=== PATIENT | female | born 1990 | race Caucasian/White ===

== ENCOUNTER → 2017-12-14 08:35 | Outpatient (CLI) | payer BC, SELFPAY ==
[2017-12-22 08:22] LABS: HPV HC, High Risk Positive (Negative)
[2017-12-22 08:29] LABS: HPV Reflexed? YES, CHARGE PATIENT
== END ==
PROVIDERS: Visit Provider Obstetrics & Gynecology
DX: Z12.4 Encounter for screening for malignant neoplasm of cervix (principal)
CPT/HCPCS: 87624; 88175; G0145

== ENCOUNTER → 2018-06-29 13:49 | Outpatient (CLI) | payer BC, SELFPAY ==
[2017-03-01 14:27] VITALS: BMI 18.8
[2018-07-01 11:51] LABS: HPV Reflexed? NOT INDICATED
== END ==
PROVIDERS: Referring Provider Obstetrics & Gynecology; Visit Provider Obstetrics & Gynecology
DX: R87.610 Atypical squamous cells of undetermined significance on cytologic smear of cervix (ASC-US) (principal); R87.810 Cervical high risk human papillomavirus (HPV) DNA test positive
CPT/HCPCS: 88175; G0145

== ENCOUNTER → 2020-05-06 11:04 | Outpatient (CLI) | payer BC, SELFPAY ==
[2017-03-01 14:27] VITALS: BMI 18.8
[2020-05-08 21:03] LABS: HPV Reflexed? NOT INDICATED
== END ==
PROVIDERS: Visit Provider Student in an Organized Health Care Education/Training Program
DX: Z12.4 Encounter for screening for malignant neoplasm of cervix (principal)
CPT/HCPCS: 88175; G0145

== ENCOUNTER 2020-07-11 14:33 | Outpatient (RCR) | payer BC, SELFPAY ==
[2017-03-01 14:27] VITALS: BMI 18.8
== END 2020-09-16 23:59 ==
LOC: IMMUN 14:33
PROVIDERS: PCP Nurse Practitioner Family; Visit Provider Family Medicine
DX: Z23 Encounter for immunization (principal)
CPT/HCPCS: 0001A; 0002A; 91300

== ENCOUNTER → 2021-03-31 12:09 | Outpatient (CLI) | payer BC, SELFPAY ==
[2021-04-01 21:07] LABS: Chlamydia By Nucleic Acid AMP Negative (Negative)
[2021-04-01 22:35] LABS: Gonococcus By Nucleic Acid AMP Negative (Negative)
== END ==
PROVIDERS: PCP Nurse Practitioner Family; Visit Provider Student in an Organized Health Care Education/Training Program
DX: Z34.81 Encounter for supervision of other normal pregnancy, first trimester (principal); Z11.3 Encounter for screening for infections with a predominantly sexual mode of transmission
CPT/HCPCS: 87491; 87591

== ENCOUNTER 2021-04-14 15:10 | Outpatient (CLI) | payer BC, SELFPAY ==
[2021-04-14 15:35] LABS: Absolute Lymphocyte Count 1.22 X10^3/uL (0.83-4.51); Absolute Neutrophil Count 6.3 X10^3/uL (2.0-7.7); Basophil# 0.02 X10^3/uL; Basophil% 0.2 % (0-1); Eosinophil# 0.04 X10^3/uL; Eosinophils% 0.5 % (0-5); Hematocrit 32.8 % (37-47); Hemoglobin 11.3 g/dL (12.0-15.0); Lymphocyte # 1.22 X10^3/ul (0.83-4.51); Mean Corp Hgb Conc 34.5 g/dL (32-36); Mean Corpuscular Volume 90.1 fL (81-99); Mean Platelet Vol. 9.9 fl (6.2-12.0); Monocyte# 0.53 X10^3/uL; Monocyte% 6.5 % (0-10); NRBC Flagged by Analyzer 0 % (0-5); Neutrophil # 6.28 X10^3/uL (2.7-7.7); Neutrophil % 77.4 % (47-70); Platelet Count 295 K/mm3 (150-450); RBC Distribution Width CV 11.6 % (11.6-14.6); RBC Distribution Width SD 38.2 fl (35.1-43.9); Red Blood Count 3.64 M/mm3 (4.2-5.4); White Blood Count 8.1 K/mm3 (4.4-11.0)
[2021-04-15 09:21] LABS: HIV - WCH Non-Reactive (Nonreactive); Hepatitis B Surface Antigen Non-Reactive (Nonreactive); Hepatitis C Antibody Non-Reactive (Nonreactive); Rubella IgG Reactive (Nonreactive); Syphilis Antibodies Non-reactive
== END 2021-04-14 23:59 | disposition short-term general hospital (02) ==
LOC: WOBLAB 15:11
PROVIDERS: PCP Nurse Practitioner Family; Visit Provider Student in an Organized Health Care Education/Training Program
DX: Z34.81 Encounter for supervision of other normal pregnancy, first trimester (principal)
CPT/HCPCS: 36415; 85025; 86703; 86762; 86780; 86803; 87086; 87340

== ENCOUNTER → 2021-08-03 | Outpatient (CLI) | payer BC, SELFPAY ==
[2021-08-03 09:33] LABS: Hematocrit 29.7 % (37-47); Hemoglobin 10.4 g/dL (12.0-15.0); Mean Corpuscular Hgb 32.3 pg (27.0-32.0); Mean Corpuscular Volume 92.2 fL (81-99); Mean Platelet Vol. 10.2 fl (6.2-12.0); Platelet Count 193 K/mm3 (150-450); RBC Distribution Width CV 12.4 % (11.6-14.6); RBC Distribution Width SD 41.7 fl (35.1-43.9); Red Blood Count 3.22 M/mm3 (4.2-5.4); White Blood Count 7.8 K/mm3 (4.4-11.0)
[2021-08-03 09:38] LABS: Glucose Challenge Gest 1H 50g 97 mg/dL (70-140)
== END | disposition home or self-care (01) ==
LOC: WOBLAB 08:55
PROVIDERS: PCP Nurse Practitioner Family; Visit Provider Student in an Organized Health Care Education/Training Program
DX: Z34.82 Encounter for supervision of other normal pregnancy, second trimester (principal)
CPT/HCPCS: 36415; 82950; 85027

== ENCOUNTER → 2021-10-22 | Outpatient (CLI) | payer BC, SELFPAY | END | disposition home or self-care (01) | LOC: LABSPEC 14:20 | PROVIDERS: PCP Nurse Practitioner Family; Visit Provider Student in an Organized Health Care Education/Training Program | DX: Z36.85 Encounter for antenatal screening for Streptococcus B (principal) | CPT/HCPCS: 87081 ==

== ENCOUNTER 2021-11-09 10:55 | Outpatient (CLI) | payer BC, SELFPAY ==
[2021-11-09 11:10] VITALS: BP 104/67; PULSE 120; TEMP 36.6; TEMP 37.4; O2SAT 98
[2021-11-09 11:41] VITALS: BMI 23.6
--- NOTE | 2021-11-09 12:48 | PCM.PN.OB ---
Subjective Subjective Patient had some cramping. Objective Data Objective Data Vital Signs: Vital Signs Temp Pulse BP Pulse Ox 97.9 F 120 H 104/67 98 11/09/21 11:10 11/09/21 11:10 11/09/21 11:10 11/09/21 11:10 Weight: 62.596 kg Body Mass Index (BMI) 23.6 Physical Exam Narrative: 2 cm per RN NST FHR Rate Baby A Baseline: 145 Variability:: Moderate Accelerations:: 15 x 15 Decelerations:: None NST Reactive:: Yes Assessment & Plan (1) 39 weeks gestation of : PLAN: 31-year-old G1 at 39/1 weeks presenting for NST. NST reactive, cervix unchanged from exam last week. Discharge home with follow-up 1 week in office. Labor precautions reviewed per RN.
== END 2021-11-09 11:48 | disposition home or self-care (01) ==
LOC: WPOUT 10:59 → WP 11:00
PROVIDERS: PCP Nurse Practitioner Family; Referring Provider Student in an Organized Health Care Education/Training Program; Visit Provider Student in an Organized Health Care Education/Training Program
DX: O99.891 Other specified diseases and conditions complicating pregnancy (principal); R25.2 Cramp and spasm; Z3A.39 39 weeks gestation of pregnancy
CPT/HCPCS: 59025; 59050; 99218; G0378

== ENCOUNTER 2021-11-18 18:45 | Outpatient (CLI) | payer BC, SELFPAY ==
[2021-11-18 19:06] VITALS: BMI 23.5
[2021-11-18 19:13] VITALS: BP 109/80; PULSE 97
[2021-11-18 19:26] VITALS: TEMP 37.4; O2SAT 99
[2021-11-18 20:06] LABS: ROM Internal Control Test YES-OK TO RESULT pt. (Internal QC); ROM Patient Test Negative (Negative)
--- NOTE | 2021-11-18 20:06 | OB.TRI.NOTE ---
HPI - General General Date of Admission: 11/18/21 HPI Narrative TAM DE LA O, is a 31 F who presents with leakage of fluid PFSH PFSH Home Medications doxylamine succinate 25 mg tablet (Unisom (doxylamine)) 25 mg PO PRN PRN Nausea 11/09/21 [History Last Taken 11/17/21 22:00] famotidine 40 mg tablet (Pepcid) 20 mg PO DAILY Check with primary doctor 11/09/21 [History Last Taken 11/18/21 10:00] vitamins no.144-folic acid 400 mcg chewable tablet () 1 tab PO DAILY Check with primary doctor 11/09/21 [History Last Taken 11/18/21 10:00] vitamin B6-vitamin E-magnesium tablet tab PO 11/18/21 [History Last Taken 11/18/21 10:00] Allergy/AdvReac Type Severity Reaction Status Date / Time tramadol Allergy Hives Verified 11/18/21 19:17 Social History Smoking Status: Never smoker NST FHR Rate Baby A Baseline: 130 Variability:: Moderate Accelerations:: 15 x 15 Decelerations:: None NST Reactive:: Yes Uterine Activity:: Few contractions Assessment & Plan (1) : PLAN: Patient arrives with leakage of fluid. ROM negative. Okay to discharge home
== END 2021-11-18 20:25 | disposition home or self-care (01) ==
LOC: WPOUT 18:50 → WP 18:51
PROVIDERS: PCP Nurse Practitioner Family; Visit Provider Obstetrics & Gynecology
DX: R32 Unspecified urinary incontinence (principal)
CPT/HCPCS: 59025; 59050; 84112; 99218; G0378

== ENCOUNTER 2021-11-19 07:05 | Outpatient (CLI) | payer BC, SELFPAY ==
[2021-11-19 07:54] VITALS: BMI 23.8
[2021-11-19 07:57] VITALS: TEMP 36.8
[2021-11-19 07:58] VITALS: BP 102/61; PULSE 105
--- NOTE | 2021-11-19 08:11 | PCM.HP.BLA ---
History and Physical Date of Admission: 11/19/21 Chief complaint: Induction of labor at term History present illness: 31-year-old at 40 weeks and 4 days arrives for induction of labor at term. Denies headache, visual changes, chest pain, shortness of breath, nausea vomit, right upper quadrant pain. Patient states good movement. Obstetric history: G1: Current Past medical history: None Medications: vitamin Past surgical history: Hand, tonsil and adenoids Allergies: Tramadol Family history: Denies history DVT or PE Social history: Denies smoking, alcohol use, drug use Review of systems: Besides above pertinent positives a full review of systems was performed and found to be negative Physical exam: Vitals: Blood pressure 102/61 General: Normal-appearing no acute distress none HEENT: Normocephalic/atraumatic no cervical of adenopathy Cardiac/respiratory: No use accessory muscles, nonlabored breathing Abdomen: Soft, nontender, gravid Extremities: No peripheral edema normal peripheral pulses Psych: Normal affect normal demeanor nonpressured speech Labs: Pending Assessment plan: 31-year-old G1, P0 at 40 weeks and 4 days for induction of labor at term Admit labor and delivery CEFM GBS negative Routine orders Anesthesia to see
== END 2021-11-19 11:55 | disposition home or self-care (01) ==
LOC: WP 12:32 → WPOUT 12:53 → WP 12:54
PROVIDERS: PCP Nurse Practitioner Family; Visit Provider Student in an Organized Health Care Education/Training Program
DX: O48.0 Post-term pregnancy (principal); Z3A.40 40 weeks gestation of pregnancy
CPT/HCPCS: 59025; 59050; 99218; G0378

== ENCOUNTER 2021-11-20 07:08 | Inpatient (IN) | payer BC, SELFPAY ==
[2021-11-20] VITALS (46 sets, daily range): BP systolic 95–120; BP diastolic 57–72; PULSE 71–126; TEMP 36.2–37.4; O2SAT 97–100; BMI 23.8
--- NOTE | 2021-11-20 07:34 | PCM.HP.BLA ---
History and Physical Date of Admission: 11/20/21 Chief complaint: Induction of labor at term History present illness: 31-year-old at 40 weeks and 5 days arrives for induction of labor at term.? Denies headache, visual changes, chest pain, shortness of breath, nausea vomit, right upper quadrant pain.? Patient states good movement. Obstetric history: G1: Current Past medical history: None Medications: vitamin Past surgical history: Hand, tonsil and adenoids Allergies: Tramadol Family history: Denies history DVT or PE Social history: Denies smoking, alcohol use, drug use Review of systems: Besides above pertinent positives a full review of systems was performed and found to be negative Physical exam: Vitals: Blood pressure 109/68 SpO2 99% on RA General: Normal-appearing no acute distress none HEENT: Normocephalic/atraumatic no cervical of adenopathy Cardiac/respiratory: No use accessory muscles, nonlabored breathing Abdomen: Soft, nontender, gravid Extremities: No peripheral edema normal peripheral pulses Psych: Normal affect normal demeanor nonpressured speech Labs: Pending Assessment plan: 31-year-old G1, P0 at 40 weeks and 5 days for induction of labor at term Admit labor and delivery CEFM GBS negative Routine orders Anesthesia to see
[2021-11-20] MEDS: Lactated Ringers 1,000 ML 50 ML IV (07:45)
[2021-11-20] MEDS: Oxytocin 30 units/NS 500 ml 30 UNITS/500 ML IV.SOLN IV (07:45)
[2021-11-20 07:59] LABS: Absolute Lymphocyte Count 2.56 X10^3/uL (0.83-4.51); Absolute Neutrophil Count 9.6 X10^3/uL (2.0-7.7); Basophil# 0.07 X10^3/uL; Basophil% 0.5 % (0-1); Eosinophil# 0.16 X10^3/uL; Eosinophils% 1.2 % (0-5); Hematocrit 32.6 % (37-47); Hemoglobin 10.5 g/dL (12.0-15.0); Lymphocyte # 2.56 X10^3/ul (0.83-4.51); Lymphocyte % 19.2 % (19-41); Mean Corp Hgb Conc 32.2 g/dL (32-36); Mean Corpuscular Hgb 29.6 pg (27.0-32.0); Mean Corpuscular Volume 91.8 fL (81-99); Monocyte# 0.92 X10^3/uL; Monocyte% 6.9 % (0-10); NRBC Flagged by Analyzer 0 % (0-5); Neutrophil # 9.55 X10^3/uL (2.7-7.7); Neutrophil % 71.6 % (47-70); Platelet Count 297 K/mm3 (150-450); RBC Distribution Width CV 12.5 % (11.6-14.6); RBC Distribution Width SD 41.3 fl (35.1-43.9); Red Blood Count 3.55 M/mm3 (4.2-5.4); White Blood Count 13.3 K/mm3 (4.4-11.0)
[2021-11-20] MEDS: LACTATED RINGERS 500 ML 999 ML IV ×2 (14:57→19:30)
--- NOTE | 2021-11-20 15:16 | PCM.PN.OB ---
Subjective Subjective Patient standing at bedside. Breathing through contractions. Objective Data Objective Data Vital Signs: Vital Signs Temp Pulse BP Pulse Ox 98.7 F 75 101/69 100 11/20/21 13:51 11/20/21 14:56 11/20/21 14:56 11/20/21 13:51 Weight: 64.92 kg Body Mass Index (BMI) 23.8 Intake & Output: Intake and Output for Last 24 Hours 11/18/21 11/19/21 11/20/21 23:59 23:59 23:59 Intake Total 506.48 / 506.48 Balance 506.48 / 506.48 Lab / Micro Data Attestation: I reviewed the patient's lab results. Result Diagrams: 11/20/21 07:45 Labs: Laboratory Results - last 24 hr 11/20/21 07:45: WBC 13.3 H, RBC 3.55 L, Hgb 10.5 L, Hct 32.6 L, MCV 91.8, MCH 29.6, MCHC 32.2, RDW Std Deviation 41.3, RDW Coeff of Home 12.5, Plt Count 297, MPV 10.0, Immature Gran % (Auto) 0.600, Neut % (Auto) 71.6 H, Lymph % (Auto) 19.2, Alfalfa % (Auto) 6.9, Eos % (Auto) 1.2, Baso % (Auto) 0.5, Absolute Neuts (auto) 9.6 H, Absolute Lymphs (auto) 2.56, Nucleated RBC % 0 11/20/21 07:45: Blood Type A POSITIVE, Antibody Screen NEGATIVE Micro: Microbiology 11/20/21 08:53 Nasal Secretion SARS-CoV-2 Antigen (Rapid) - Final Physical Exam Const alert and oriented x3 Resp normal respiratory effort GI Inspection: gravid Narrative: 3-4/80/0, AROM clear fluid Extremity no pedal edema NST FHR Rate Baby A Baseline: 135 Variability:: Moderate Accelerations:: 15 x 15 Decelerations:: None FHR Category:: Category I Uterine Activity:: q3 Assessment & Plan (1) Elective induction of labor planned: PLAN: 40/5 weeks induction of labor at term. AROM clear fluid. Category 1. Continue titrating Pitocin as tolerated.
[2021-11-20] MEDS: fentaNYL-bupivacaine (epidural) 100 ML BAG EPIDURAL ×3 (16:14→21:23)
[2021-11-20] MEDS: Lactated Ringers 1,000 ML 200 ML IV (18:20)
[2021-11-20] MEDS: Ondansetron 4 MG/2 ML Vial IV (21:31)
[2021-11-20] MEDS: Oxytocin 30 units/NS 500 ml 30 UNITS/500 ML IV.SOLN 334 UNITS IV (23:16)
--- NOTE | 2021-11-20 23:54 | EX.PCM.OBRPT ---
Vaginal Delivery Operative Information Date of Procedure: 11/20/21 Pre-Operative Diagnosis: Faust intrauterine at term Post-Operative Diagnosis: Faust intrauterine at term, third-degree perineal laceration Surgery / Procedure Performed: Spontaneous Vaginal Delivery Type of Anesthesia: Epidural Estimated Blood Loss: 300cc Findings Description of Procedure: Spontaneous vaginal delivery of viable infant male. Nuchal cord x1, loose, reduced. Baby to mom. Cord clamped and cut. Spontaneous delivery of placenta. Third-degree (3a) perineal laceration repaired in the usual fashion. Rectal exam completed prior to repair and after completion, noting intact rectal mucosa and anal sphincter on both examinations. Right labial laceration, repaired with interrupted stitches. Hemostatic. Cefoxitin x1 dose (2g IV) for third degree laceration. A Gender: Male (1 minute): 8 (5 minute): 9
[2021-11-21] VITALS (44 sets, daily range): BP systolic 93–110; BP diastolic 51–66; PULSE 73–150; RESP 14–18; TEMP 36.2–36.8; O2SAT 96–99
[2021-11-21] MEDS: Ibuprofen 600 MG Tablet PO ×4 (02:55→20:28)
--- NOTE | 2021-11-21 08:52 | PCM.PN.OB ---
Subjective Subjective No overnight complaints. Pain well controlled Objective Data Objective Data Vital Signs: Vital Signs Temp Pulse Resp BP Pulse Ox 98.2 F 85 16 93/51 L 98 11/21/21 04:20 11/21/21 04:20 11/21/21 04:20 11/21/21 04:20 11/21/21 02:18 Weight: 143 lb 2 oz Body Mass Index (BMI) 23.8 Intake & Output: Intake and Output for Last 24 Hours 11/19/21 11/20/21 11/21/21 23:59 23:59 23:59 Intake Total 3088.31 / 3088.31 600 / 600 Output Total 400 / 400 Balance 2688.31 / 2688.31 600 / 600 Lab / Micro Data Result Diagrams: 11/20/21 07:45 Labs: Laboratory Results - last 24 hr 11/20/21 07:45: Blood Type A POSITIVE, Antibody Screen NEGATIVE Micro: Microbiology 11/20/21 08:53 Nasal Secretion SARS-CoV-2 Antigen (Rapid) - Final Physical Exam Const alert, oriented x3, no apparent distress, average body habitus, healthy appearing and well nourished HEENT normocephalic and moist oral mucous membranes Eyes PERRL Resp normal respiratory effort, no retractions and no use of accessory muscles GI GI Narrative: Soft, nontender, uterus firm and below umbilicus Neuro moves all extremities and no focal motor deficits Psych mental status grossly normal, affect normal, speech normal and activity/motor behavior normal Assessment & Plan (1) Vaginal delivery: PLAN: day 1. Breast-feeding. Pain well controlled. Likely home tomorrow
[2021-11-21] MEDS: Dibucaine 30 GM Tube 1 APPLIC TOPICAL (10:53)
[2021-11-21] MEDS: Senna/Docusate Sodium 1 Tablet PO (15:58)
[2021-11-21] MEDS: Acetaminophen 500 MG Tablet 1000 MG PO ×2 (15:59→22:40)
--- NOTE | 2021-11-21 19:00 | CASEMGMT ---
Social Work Note Reason for Referral: Mental Health - History of Anxiety and Depression Date of Referral: 11/21/2021 Date of Assessment: 11/21/2021 SW spoke with RN. RN states no concerns and is doing great. SW in to speak with pt. Pt sleeping but did wake up when this worker entered the room. MADISYN Jay present in room and MOB gave permission for this worker to speak to her in front of her guest. MOB: Odalys King G/P: 1/0 PNC: [facility] Control: Condoms Baby: Jarett Wiseman : 11/20/2020 Apgars: 8/9 Weight: 4135 G Floating Labor Gang Supervisor: Dr. Mg. MOB states she tried to call today to get baby an appointment but states when she called the office, they were not taking phone calls at this time. MOB states she plans to call again to get appointment scheduled. MOB states she plans to breast feed. MOB states that breast feeding is going ok. MOB's other children: MOB reports no other children, states this baby is her first. Housing: MOB reports no concerns, states is spoiled. Transportation: MOB states she has access to transportation. Supplies: MOB reports to have all needed supplies. Supports/Childcare Helpers: MOB states Jay will be good support. MOB also states that her MIL lives two minutes away and is able to help. MOB states that her mother will be staying a week. Education Level: MOB reports to have graduated from high school. MOB reports to have gone to college and to have a Bachelor's degree. MOB states her degree is in legal studies/pre law. Employment: MOB reports to work at [employer] in the [place]. MOB states to have 12 weeks paid off and can do a total of 18 weeks off for new baby. Agency Involvement: MOB reports none Maternal Mental Health Hx: MOB states that she does have history of Anxiety and Depression. MOB states that she is currently not on medication. MOB reports to did take Generac Lexapro but states she has not taken this medication in years. MOB reports that her Anxiety and Depression are well managed. MOB reports no current suicidal/homicidal thoughts or plans. MOB states she is agreeable to seeing a counselor/therapist if PPD happens. PHQ-2 score = 0 AOD History: MOB reports no history of AOD and no AOD use during . FOB: Jay Malik - Time Together: 10 years totaled and for five Involved in : Yes Employment: [employer]. FOB reports to be taking one week off from work. Other Children: FOB reports first child. FOB Mental Health Hx: FOB reports no Mental Health, Substance use history. Both FOB and MOB reports no Domestic Violence concerns. SW spoke with pt and provided education on Shaken Baby, PPD, and Safe Sleeping. MOB reports to be aware of PPD and states that she already has a counselor, Dr. Castillo in mind, should she develop PPD and need help. SW provided MOB with resource packet. SW unable to see MOB with baby as MOB was sleeping when this worker entered the room and FOB was holding baby. Both MOB and FOB appeared appropriate and RN stated no concerns. Plan: Home Kina Barry UNIFORM PATROL POLICE OFFICER, PHLEBOTOMY TECHNOLOGIST
[2021-11-22 02:11] VITALS: BP 92/53; PULSE 75
[2021-11-22 02:12] VITALS: BP 92/53; PULSE 75; RESP 18; TEMP 36.1
[2021-11-22] MEDS: Ibuprofen 600 MG Tablet PO (02:19)
[2021-11-22 08:37] VITALS: BP 102/58; PULSE 82; RESP 16; TEMP 36.4
--- NOTE | 2021-11-22 09:44 | PN.OBGYN_ITS ---
Subjective Subjective No overnight complaints. Pain well controlled. Objective Data Objective Data Vital Signs: Vital Signs Temp Pulse Resp BP Pulse Ox O2 Del Method 97.5 F L 82 16 102/58 L 98 Room Air 11/22/21 08:37 11/22/21 08:37 11/22/21 08:37 11/22/21 08:37 11/21/21 02:18 11/22/21 08:37 Oxygen Delivery Method Room Air Weight: 143 lb 2 oz Body Mass Index (BMI) 23.8 Intake & Output: Intake and Output for Last 24 Hours 11/20/21 11/21/21 11/22/21 23:59 23:59 23:59 Intake Total 3088.31 / 3088.31 600 / 600 Output Total 400 / 400 Balance 2688.31 / 2688.31 600 / 600 Lab / Micro Data Result Diagrams: 11/20/21 07:45 Micro: Microbiology 11/20/21 08:53 Nasal Secretion SARS-CoV-2 Antigen (Rapid) - Final Physical Exam Const alert, oriented x3, no apparent distress, average body habitus, healthy ap pearing and well nourished HEENT normocephalic and moist oral mucous membranes Eyes PERRL Neck full ROM Resp normal respiratory effort, no retractions and no use of accessory muscles GI GI Narrative: Soft, nontender, uterus firm below umbilicus Extremity normal to inspection, full ROM and no clubbing, cyanosis or edema Neuro moves all extremities and no focal motor deficits Psych mental status grossly normal, affect normal, speech normal and activity/motor behavior normal Assessment & Plan (1) Vaginal delivery: PLAN: day 2. Breast-feeding. Okay to discharge home today
--- NOTE | 2021-11-22 09:46 | PCM.DC.BLA ---
Discharge Summary Date of Admission: 11/20/21 Date of Discharge: 11/22/21 Summary: Patient arrived on 11/20/2021 for induction of labor at term. Subsequently delivered vaginally on 11/20/2021. Routine recovery discharged home on 11/23/2019 Meaningful Use Info Meaningful Use Diagnoses (Choose all that apply): None applicable Discharge Plan Admission Admit Date/Time: 11/20/21 07:08 Primary Reason for Your Visit: Induction of labor at term Attending Provider: Dominique Childress Primary Care Provider: Leatha Singer NP Instructions Patient Instructions: After a Vaginal Additional Instructions / Restrictions: Regular diet. Okay to shower. Weightbearing as tolerated. No intercourse for 4 to 6 weeks. Call if fevers, chills, chest pain, shortness of breath. Follow-up 4 to 6 weeks Discharge Orders/Prescriptions Prescriptions: No Action 400 mcg Tablet,Chewable 1 tab PO DAILY famotidine [Pepcid] 40 mg Tablet 20 mg PO DAILY Unisom (doxylamine) 25 mg Tablet 25 mg PO PRN PRN (Reason: Nausea) vitamin B6-vitamin E-magnesium Tablet 1 tab PO DAILY Label Comments: pt unsure of dosage of vitamin B6 Referrals / Follow Up: Leatha Singer NP, [employer] SALES REPRESENTATIVE-C [Primary Care Provider] - Disposition Disposition (needs filled in before D/C Order can be placed): Home, Self Care
[2021-11-22] MEDS: Senna/Docusate Sodium 1 Tablet PO (10:15)
== END 2021-11-22 12:00 | disposition home or self-care (01) | DRG 768 ==
PROVIDERS: Admitting Provider Student in an Organized Health Care Education/Training Program; PCP Nurse Practitioner Family; Visit Provider Student in an Organized Health Care Education/Training Program
DX: O48.0 Post-term pregnancy (principal); Z37.0 Single live birth; O70.20 Third degree perineal laceration during delivery, unspecified; O70.0 First degree perineal laceration during delivery; O69.81X0 Labor and delivery complicated by cord around neck, without compression, not applicable or unspecified; Z3A.40 40 weeks gestation of pregnancy
CPT/HCPCS: 59025; 59050; 85025; 86850; 86900; 86901; 87426; 99218; J7120; G0378; J2405

== ENCOUNTER 2022-08-16 10:22 | Day surgery (SDC) | payer BC, SELFPAY ==
--- NOTE | 2022-08-16 10:22 | HP.PCM.OB_ITS ---
History and Physical Date of Admission: 08/16/22 HPI: 32-year-old female with dyspareunia and excess vaginal tissue plan for exam under anesthesia and excision of vaginal tissue.? Denies headache or vision changes, chest pain or shortness of breath, nausea or vomiting, diarrhea constipation, fevers or chills. SALES ANALYTICS MANAGER history: G1: 40w , third degree tear Medical history: 1.?Denies Surgical history: 1.? Hand surgery 2.? Tonsillectomy and adenoidectomy Allergies: Tramadol causes hives Family history: Denies history of blood clots or bleeding disorders Social history: Denies alcohol, tobacco, or drug use. Medications: None Review of system: Negative otherwise stated above Physical exam: Vitals pending General: No acute distress HEENT: Normal cephalic/atraumatic, PERRLA Cardiorespiratory: No increased effort Abdomen: Soft, nontender Extremities: No edema Neurologic: Cranial nerves II through XII grossly intact Musculoskeletal: Moves all extremities equally Assessment/plan: 32-year-old female with dyspareunia and excess vaginal tissue plan for exam under anesthesia and excision of vaginal tissue. All risk, benefits, alternatives were discussed with patient.? Risk include but not limited to: Risk of bleeding to the point transfusion, infection, injury to surrounding tissue including bowel/bladder, VTE, ICU admission.? Patient aware and consented.?
[2022-08-16 10:54] LABS: Internal QC Validated? YES +Cl - CLEAR BKGD; Pregnancy, Urine Negative Negative
[2022-08-16 10:55] LABS: Hematocrit 35.9 % (37-47); Hemoglobin 11.9 g/dL (12.0-15.0); Mean Corp Hgb Conc 33.1 g/dL (32-36); Mean Corpuscular Hgb 28.8 pg (27.0-32.0); Mean Corpuscular Volume 86.9 fL (81-99); Mean Platelet Vol. 9.4 fl (6.2-12.0); Platelet Count 271 K/mm3 (150-450); RBC Distribution Width CV 13.5 % (11.6-14.6); RBC Distribution Width SD 42.8 fl (35.1-43.9); Red Blood Count 4.13 M/mm3 (4.2-5.4); White Blood Count 4.6 K/mm3 (4.4-11.0)
[2022-08-16] MEDS: Lactated Ringers 1,000 ML 15 ML IV (10:55)
[2022-08-16 10:56] VITALS: BP 115/50; PULSE 86; RESP 18; TEMP 37.3; O2SAT 100; BMI 18.4
--- NOTE | 2022-08-16 11:55 | PCM.OPRPT ---
Report of Operation Date of Procedure: 08/16/22 Pre-Operative Diagnosis: Dyspareunia, excess vaginal tissue Post-Operative Diagnosis: Dyspareunia, excess vaginal tissue Surgery/Procedure Performed:: Exam under anesthesia, excision of excess vaginal tissue Description of Surgical Findings:: Normal-appearing external genitalia. Excess vaginal tissue at the vaginal introitus midline extending towards the left labia majora. Likely hymenal tissue healing in this location after third-degree laceration repair. Surgeon: Dominique Childress machine pecan gatherer: None Type of Anesthesia: MAC Specimen's removed: Vaginal skin Estimated Blood Loss (mL): 5 cc Fluids Replaced: 400cc Description of Procedure: Indication/risk/benefits: 32-year-old female with dyspareunia and excess vaginal tissue plan for exam under anesthesia and excision of vaginal tissue. All risk, benefits, alternatives were discussed with patient.? Risk include but not limited to: Risk of bleeding to the point transfusion, infection, injury to surrounding tissue including bowel/bladder, VTE, ICU admission.? Patient aware and consented.? Procedure: Patient taken to the operating room and MAC anesthesia induced. Patient placed in the dorsal lithotomy position prepped and draped in usual sterile fashion. Excess vaginal tissue grasped with 2 Allis clamps and removed with scalpel. Reapproximated using interrupted [id number] suture. Hemostatic. At the end of the procedure all needle, lap, sponge counts were correct. Urine output: none measured Complications None Admit VTE Documentation VTE Mechan Device Prophylaxis: SCD's
[2022-08-16] MEDS: Cefazolin 2 GM in 0.9% Normal Saline 100 ML IV (11:56)
--- NOTE | 2022-08-16 11:56 | PCM.DC ---
Discharge Instructions Diet Discharge Diet: No restrictions Activity Discharge Activity: Return to Normal Activity and May Shower May resume sexual activity in: 4 weeks Weight Bearing Status: Weight bearing as tolerated Lifting Restrictions: None Dressing / Incision Call your doctor if you observe: Fever of 101 or Higher, Change in Color, Inability to urinate, Using more than 1 pad per hour, Shortness of breath, Dizziness, Swelling in the ankles, Chest pain and Calf discomfort Cleanse incision/area with: Keep Dressing Clean & Dry Follow Up Care Please Follow Up With: Dominique Childress DO When: 1-2 week postoperative visit Test Results: Test results from this visit will be discussed in further detail at your follow-up appointment, if applicable. Discharge Plan Admission Primary Reason for Your Visit: Excision of excess tissue Attending Provider: Dominique Childress Primary Care Provider: Leatha Singer NP Discharge Orders/Prescriptions Prescriptions: No Action ibuprofen 200 mg Tablet 600 mg PO Q6H PRN (Reason: Migraine Headache) Referrals / Follow Up: Leatha Singer NP, COMPUTER AIDED DESIGN DESIGNER-C [Primary Care Provider] - Disposition Disposition (needs filled in before D/C Order can be placed): Home, Self Care
[2022-08-16 12:20] VITALS: BP 115/50; BP 86/50; PULSE 57; RESP 18; TEMP 36.8; O2SAT 99
[2022-08-16 12:25] VITALS: BP 115/50; BP 89/56; PULSE 63; RESP 18; O2SAT 100
[2022-08-16 12:30] VITALS: BP 115/50; BP 86/50; PULSE 56; RESP 18; O2SAT 100
[2022-08-16 12:35] VITALS: BP 115/50; BP 87/53; PULSE 63; RESP 18; TEMP 36.9; O2SAT 100
[2022-08-16 13:58] VITALS: BP 113/68; BP 115/50; PULSE 78; RESP 16; O2SAT 100
== END 2022-08-16 14:02 | disposition home or self-care (01) ==
LOC: SDC 10:23 → AC 10:24
PROVIDERS: Anesthesiology; PCP Nurse Practitioner Family; Referring Provider Student in an Organized Health Care Education/Training Program; Visit Provider Student in an Organized Health Care Education/Training Program
PROC: (CPT 57410; principal; 2022-08-16 11:50)
DX: N94.10 Unspecified dyspareunia (principal)
CPT/HCPCS: 57135; 00940; 81025; 85027; 86850; 86900; 86901; J7120; J2405

== ENCOUNTER → 2023-07-18 | Outpatient (CLI) | payer BC, SELFPAY ==
[2023-07-20 04:07] LABS: Chlamydia By Nucleic Acid AMP Negative (Negative); Gonococcus By Nucleic Acid AMP Negative (Negative)
[2023-07-20 15:08] LABS: HPV APTIMA, High Risk Negative (Negative)
== END | disposition home or self-care (01) ==
LOC: LABSPEC 13:04
PROVIDERS: PCP Nurse Practitioner Family; Referring Provider Obstetrics & Gynecology; Visit Provider Obstetrics & Gynecology
DX: O09.90 Supervision of high risk pregnancy, unspecified, unspecified trimester (principal); Z3A.00 Weeks of gestation of pregnancy not specified
CPT/HCPCS: 87086; 87491; 87591; 87624; 88175; G0145

== ENCOUNTER → 2023-08-05 | Outpatient (CLI) | payer BC, SELFPAY ==
[2023-08-05 14:03] LABS: Absolute Lymphocyte Count 1.48 X10^3/uL (0.83-4.51); Absolute Neutrophil Count 6.7 X10^3/uL (2.0-7.7); Basophil# 0.04 X10^3/uL; Basophil% 0.5 % (0-1); Eosinophil# 0.05 X10^3/uL; Eosinophils% 0.6 % (0-5); Hematocrit 35.7 % (37-47); Hemoglobin 12.2 g/dL (12.0-15.0); Lymphocyte # 1.48 X10^3/ul (0.83-4.51); Mean Corp Hgb Conc 34.2 g/dL (32-36); Mean Corpuscular Hgb 29.9 pg (27.0-32.0); Mean Corpuscular Volume 87.5 fL (81-99); Mean Platelet Vol. 10.3 fl (6.2-12.0); Monocyte# 0.43 X10^3/uL; Monocyte% 4.9 % (0-10); NRBC Flagged by Analyzer 0 % (0-5); Neutrophil # 6.68 X10^3/uL (2.7-7.7); Neutrophil % 76.7 % (47-70); Platelet Count 329 K/mm3 (150-450); RBC Distribution Width CV 12.4 % (11.6-14.6); RBC Distribution Width SD 39.5 fl (35.1-43.9); Red Blood Count 4.08 M/mm3 (4.2-5.4); White Blood Count 8.7 K/mm3 (4.4-11.0)
[2023-08-05 14:32] LABS: HIV - WCH Non-Reactive (Nonreactive); Hepatitis B Surface Antigen Non-Reactive (Nonreactive); Hepatitis C Antibody Non-Reactive (Nonreactive); Rubella IgG Reactive (Nonreactive); Syphilis Antibodies Non-reactive
== END | disposition home or self-care (01) ==
LOC: LAB 13:07
PROVIDERS: PCP Nurse Practitioner Family; Referring Provider Obstetrics & Gynecology; Visit Provider Obstetrics & Gynecology
DX: Z34.90 Encounter for supervision of normal pregnancy, unspecified, unspecified trimester (principal); Z3A.00 Weeks of gestation of pregnancy not specified
CPT/HCPCS: 36415; 85025; 86703; 86762; 86780; 86803; 86850; 86900; 86901; 87340

== ENCOUNTER 2023-08-16 05:59 | Day surgery (SDC) | payer BC, SELFPAY ==
[2023-08-16] VITALS (9 sets, daily range): BP systolic 71–107; BP diastolic 49–73; PULSE 57–84; RESP 16; TEMP 36.8–37.3; O2SAT 97–100; BMI 20.2
--- NOTE | 2023-08-16 | POC_PTH ---
PATIENT: ATM DE LA O [place] [facility] [id number] AGE/SX: 33/F ROOM: RE08/16/[address]: Dr. Gia Mckeon DO : 1990 BED: DIS: 08/16/2023 SPEC #: [id number] RECD: 08/16/23 10:52 STATUS: CHAD REFátima #: [id number] ROSA M: 08/16/23 00:[address]: Gia Mckeon DEPT: SURGICAL PATHOLOGY RECD BY: Ricky Morrison ENTERED: 08/16/23 10:52 SP TYPE: PROD CONC OTHR DR: Leatha Singer, AAKASH-Susanna Tissues: Product of conception, NOS Procedures: Surgery Specimen Level IV HEADER OPERATION: D&C, suction PRE-OP DIAGNOSIS: Missed TISSUE SUBMITTED: Products of conception MICROSCOPIC DIAGNOSIS Products of conception, dilation and curettage: Immature placental tissue, decidua and gestational endometrium (products of conception), clinically missed . JESS: 08/17/23 MICROSCOPIC DESCRIPTION Slides are reviewed. GROSS DESCRIPTION Received in fixative is one container labeled with the patient's name and designated Products of conception. The specimen consists of multiple fragments of pink soft tissue measuring in aggregate 8.0 x 7.0 x 2.0cm. tissue is not identified. Nut Packer tissue is submitted in two cassettes. JESS/ 08/16/23 TC:5 CPT:12244
[2023-08-16] MEDS: Lactated Ringers 1,000 ML 15 ML IV (06:22)
[2023-08-16] MEDS: Doxycycline 100 MG CAPSULE PO (06:26)
[2023-08-16 06:37] LABS: Absolute Neutrophil Count 5.2 X10^3/uL (2.0-7.7); Basophil# 0.04 X10^3/uL; Basophil% 0.5 % (0-1); Eosinophil# 0.13 X10^3/uL; Eosinophils% 1.7 % (0-5); Hematocrit 34.7 % (37-47); Hemoglobin 11.9 g/dL (12.0-15.0); Lymphocyte % 22.5 % (19-41); Mean Corp Hgb Conc 34.3 g/dL (32-36); Mean Corpuscular Hgb 30.3 pg (27.0-32.0); Mean Corpuscular Volume 88.3 fL (81-99); Mean Platelet Vol. 10.1 fl (6.2-12.0); Monocyte# 0.45 X10^3/uL; NRBC Flagged by Analyzer 0 % (0-5); Neutrophil # 5.21 X10^3/uL (2.7-7.7); Neutrophil % 68.9 % (47-70); Platelet Count 256 K/mm3 (150-450); RBC Distribution Width CV 12.5 % (11.6-14.6); RBC Distribution Width SD 40.2 fl (35.1-43.9); Red Blood Count 3.93 M/mm3 (4.2-5.4); White Blood Count 7.6 K/mm3 (4.4-11.0)
--- NOTE | 2023-08-16 07:30 | HP.PCM.OB_ITS ---
HPI - General HPI Narrative TAM DE LA O, is a 33 y/o @ 11 weeks from her LMP who presents to [facility] for a suction D&C for a missed , measuring 8 weeks on ultrasound without heart tones yesterday morning. 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 She has elected to proceed with a suction dilation and curettage procedure. [facility] Medical History (Updated 08/16/23 @ 07:[address] Gia Mckeon, DO) Acute pyelonephritis Anxiety Blackout Chemical Hx of abnormal cervical Pap smear Leg cramps Low iron Migraine headache Non-smoker Wears contact lenses Wears glasses Home Medications doxylamine succinate 25 mg tablet (Unisom (doxylamine)) 25 mg PO QHS PRN sleep 07/15/23 [History Last Taken Unknown] multivitamin no.47-iron fum 27 mg-folate no.1 1 mg-dha 300 mg capsule (PNV-DHA) 1 cap PO DAILY 07/15/23 [History Last Taken Unknown] Allergy/AdvReac Type Severity Reaction Status Date / Time tramadol Allergy Hives Verified 08/16/23 06:17 Family History Mother Thyroid disorder Fibromyalgia Sister Chronic ITP (idiopathic thrombocytopenic purpura) Neutropenia Surgical History History of hand surgery History of nasal septoplasty History of tonsillectomy and adenoidectomy Social History adopted: No household members: spouse and children number of children: 1 current occupational status: employed current occupation: [employer] current occupational exposures/hazards: No pets and animals: Yes pets and animals: dog(s) history of recent travel: No sexually active: Yes Smoking Status: Never smoker alcohol intake: current alcohol intake frequency: a few times a month details: not while substance use type: does not use well-balanced diet: daily or most days caffeine: No eating out: 1-3 times/week during the past year weight has: remained stable what type of physical activity do you participate in: walking frequency: 5-6 times per week duration: 30-45 minutes/day ni/holiness: None seatbelt use: always do you feel safe at home: Yes additional social history: [employer] History 2 Elective abortions Hx Para 1 Spontaneous abortions Hx # Term Pregnancies Ectopic pregnancies Hx # Pregnancies Multiple births # of living children 1 Past Pregnancies Del. Date Name GA/Weeks Outcome Route Bth Weight Gen Labor Lgth Anesthesia Del Locatn Provider FOB 11/20/21 Bowen 40 live - full term 9#2oz Male 16hr epidur al [facility] Dominique Childress Jay 04/26/23 chemical 08/16/23 miscarriage 12 Delivery Date: 11/20/21 Last Updated by: Petrona Mcdowell IOL, post date Delivery Date: 08/16/23 Last Updated by: Akanksha Castellano Suction dilation and curettage, measuring 8 wks 6 days on 08/15/23 ROS Constitutional Constitutional: Denies change in weight, fatigue, fever(s), headache(s), poor appetite or weakness Eyes Eyes: Denies blurry vision, change in vision, seeing flashes or spots in vision ENT HEENT: Denies dizziness, headache(s), loss taste/smell or sore throat Cardiovascular Cardiovascular: Denies chest pain, dizziness, dyspnea, irregular heart rhythm, leg edema, palpitations, rapid heart rate or vomiting Respiratory/Chest Respiratory/Chest: Denies chest tightness, cough, dyspnea or breast pain Gastrointestinal Gastrointestinal: Denies abdominal pain, anorexia, constipation, cramping, diarrhea, hemorrhoids, vomiting or weight changes Genitourinary Genitourinary: Denies dysuria, flank pain, genital lesions, genital pain, urinary frequency or urinary urgency Musculoskeletal Musculoskeletal: Denies back pain, difficulty walking, joint pain, limited range of motion, muscle cramps or numbness Integumentary Integumentary: Denies lesions or unusual bruising Neurologic Neurologic: Denies abnormal movements, abnormal speech, dizziness, numbness, seizure-like activity or syncope Psychiatric Psychiatric: Denies anxiety, behavioral changes, change in appetite, change in libido, cognitive impairment, confusion, depression, difficulty concentrating, hallucinations or suicidal thoughts Endocrine Endocrinology: Denies excessive sweating, polydipsia or polyuria Hematologic/Lymphatic Hematologic/Lymphatic: Denies easy bleeding, easy bruising or lymphadenopathy Allergic/Immunologic Allergic/Immunologic: Denies itchy eyes, lip swelling, seasonal rhinorrhea, rhinitis, throat swelling, tongue swelling, eczemia, wheezing or asthma Vital Signs Vital Signs Vital Signs: 08/16/23 06:18 08/16/23 06:20 Temperature 98.5 F Temperature Source Temporal Pulse Rate 76 Respiratory Rate 16 Respiratory Pattern Normal Blood Pressure 107/73 Blood Pressure Mean 84 Blood Pressure Source Monitor Blood Pressure Position Semi-Fowlers Blood Pressure Location Right Arm Pulse Ox 100 Oxygen Delivery Method Room Air Weight Weight: 118 lb Body Mass Index (BMI) 20.2 Physical Exam Const alert, oriented x3, no apparent distress and healthy appearing General Appearance: cooperative; Negative for anxious HEENT normocephalic Face and Sinus: normal facial exam Eyes EOMs intact bilaterally and no scleral icterus General Eye: normal appearance of both eyes Neck full ROM and supple Resp normal respiratory effort Effort and Inspection: able to speak in complete sentences Cardio regular rate GI soft to palpation and non-tender Palpation: soft; Negative for tender external exam normal Amniotic Fluid: ROM+plus Back/Spine no CVA tenderness Extremity normal to inspection, full ROM and no clubbing, cyanosis or edema General Extremity: Negative for calf tenderness or edema Skin Lesions: no lesions Rashes: no rashes Psych mental status grossly normal Labs Labs Labs: Blood Type A POSITIVE Antibody Screen NEGATIVE Hct 34.7 % (37-47) L Hgb 11.9 g/dL (12.0-15.0) L Syphilis Total Ab Non-reactive Rubella IgG Antibody Reactive (Nonreactive) Hep Bs Antigen Non-Reactive (Nonreactive) Hepatitis C Antibody Non-Reactive (Nonreactive) Chlamydia DNA (JEWEL) Negative (Negative) N.gonorrhoeae DNA (JEWEL) Negative (Negative) HIV 1&2 Antibody Non-Reactive (Nonreactive) Glucose 1 Hr 50 gm 97 mg/dL (70-140) Rhogam given: No Assessment & Plan (1) Missed : COMMENT: D&C scheduled with JV Monosomy X PLAN: After discussing the patient's diagnosis and treatment plan options, patient wishes to proceed with surgical management. I have discussed with the patient the risks, benefits, and alternatives of the procedure which include but are not limited to risks of anesthesia, bleeding, infection, possible damage to bowel, bladder, or surrounding vasculature which could lead to additional surgery to evaluate any complications. Patient agrees to procedure and wishes to proceed. ACOG/uptodate references given for additional information regarding procedure. plan for suction dilation and curettage. Patient will not be sending POC for anora testing due to findings of monosomy x on NIPT.
--- NOTE | 2023-08-16 07:33 | DCINST_ITS ---
Discharge Instructions Diet Discharge Diet: No restrictions Activity Discharge Activity: Return to Normal Activity, May Shower and May Take a Tub Bath (after 1 week) May resume sexual activity in: 1-2 weeks Weight Bearing Status: Weight bearing as tolerated Lifting Restrictions: none Dressing / Incision Call your doctor if you observe: Fever of 101 or Higher, Using more than 1 pad per hour, Shortness of breath and Uncontrolled pain Follow Up Care Please Follow Up With: Gia Mckeon DO When: Call [phone] to schedule appointment. Test Results: Test results from this visit will be discussed in further detail at your follow- up appointment, if applicable. Discharge Plan Admission Primary Reason for Your Visit: suction dilation and curettage Attending Provider: Gia Mckeon Primary Care Provider: Leatha Singer NP Discharge Orders/Prescriptions Prescriptions: New naproxen 500 mg tablet 500 mg PO BID PRN (Reason: pain) Qty: 20 0RF No Action PNV-DHA 27 mg iron-1 mg -300 mg capsule 1 cap PO DAILY Unisom (doxylamine) 25 mg tablet 25 mg PO QHS PRN (Reason: sleep) Referrals / Follow Up: Leatha Singer NP, [employer] [Primary Care Provider] - Disposition Disposition (needs filled in before D/C Order can be placed): Home, Self Care
[2023-08-16] MEDS: Lidocaine 1% (20 ml mdv) 20 ML Vial (07:48)
--- NOTE | 2023-08-16 08:27 | PCM.OP.BLANK ---
Problems Associated Problem List Diagnoses (1) Missed : Operative Report Date of Procedure: 08/16/23 Preoperative diagnosis: 11 weeks missed , suspected monosomy X on free cell DNA Postoperative diagnosis: 11 weeks missed , suspected Monosomy x on free cell DNA Surgery: Suction dilation and curettage Surgeon: Dr. Gia Mckeon, DO Urine output: none Fluids: 500cc Estimated blood loss: 50cc Details of the proceudre The patient was taken to the operating room and placed under MAC local anesthesia. She was prepped and draped in the normal sterile fashion the dorsal lithotomy position. Bladder was drained of clear urine and anterior lip of the cervix was grasped and the uterus sounded to 10cm. Cervix was progressively dilated to allow passage of a 8 mm suction curette. Progressive passes were made removing the retained products of conception without complication. This was performed under ultrasound guidance. Sharp curettage confirmed complete removal of the retained products. All instruments were removed from the vagina and excellent hemostasis was noted and the patient was taken to recovery in stable condition. Multi Select Codes Urinary/Genital Urinary/Genital CPT Codes: 91988 Surg Trtmt missed Ab 1TM
== END 2023-08-16 09:37 | disposition home or self-care (01) ==
LOC: SDC 06:00 → AC 06:00
PROVIDERS: PCP Nurse Practitioner Family; Referring Provider Obstetrics & Gynecology; Visit Provider Obstetrics & Gynecology
PROC: (CPT 59820; principal; 2023-08-16 07:15)
DX: O02.1 Missed abortion (principal); Z14.1 Cystic fibrosis carrier; Z87.42 Personal history of other diseases of the female genital tract
CPT/HCPCS: 59820; 01965; 85025; 86850; 86900; 86901; 88305; J7120; J2405

== ENCOUNTER → 2023-09-06 | Outpatient (CLI) | payer BC, SELFPAY ==
--- NOTE | 2023-09-06 16:22 | US_ITS ---
STUDY: ULTRASOUND OF THE FEMALE PELVIS - COMPLETE REASON FOR EXAM: Female, 33 years old. AUB LMP: 06/07/2023. Prior DTC on August 16, 2023. TECHNIQUE: Transabdominal TECHNICAL QUALITY: Adequate. COMPARISON: None. FINDINGS: The uterus is anteverted and is tilted to the left side of the pelvis. The uterus measures 10.8 cm x 5.2 cm x 6.4 cm. Normal uterine cervix. The endometrium measures 11.7 mm in thickness, and is hyperechoic. There is no demonstrated endometrial mass. There is no demonstrated myometrial mass. I.U.D. - The patient does not have an I.U.D. The right ovary is visualized. The right ovary measures 5.8 cm x 4 cm x 4.1 cm. There is a 4.2 cm x 3.9 cm x 4.2 cm ovarian cyst. There is no visualized right adnexal mass or complex lesion. There is normal arterial and normal venous vascularity. The left ovary is visualized. The left ovary measures 2.7 cm x 2.8 cm x 1.9 cm. There is a 9 mm x 7 mm x 6 mm ovarian follicle. There is no visualized left adnexal mass or complex lesion. There is normal arterial and normal venous vascularity. There is no fluid in the cul-de-sac. US/Pelvic (Non ) IMPRESSION: Endometrial thickening measuring 11.7 mm. Right ovarian cyst. Electronically Signed: Carlos Barrera MD at 11:04 EDT ,
== END | disposition home or self-care (01) ==
LOC: US 16:21
PROVIDERS: PCP Nurse Practitioner Family; Referring Provider Obstetrics & Gynecology; Visit Provider Obstetrics & Gynecology
DX: N93.9 Abnormal uterine and vaginal bleeding, unspecified (principal)
CPT/HCPCS: 76856

== ENCOUNTER → 2024-01-30 | Outpatient (CLI) | payer BC, SELFPAY ==
[2024-01-31 21:07] LABS: Chlamydia By Nucleic Acid AMP Negative (Negative); Gonococcus By Nucleic Acid AMP Negative (Negative)
== END | disposition home or self-care (01) ==
LOC: LABSPEC 11:51
PROVIDERS: PCP Nurse Practitioner Family; Referring Provider Advanced Practice Midwife; Visit Provider Advanced Practice Midwife
DX: O09.90 Supervision of high risk pregnancy, unspecified, unspecified trimester (principal); Z3A.00 Weeks of gestation of pregnancy not specified
CPT/HCPCS: 87086; 87088; 87491; 87591

== ENCOUNTER → 2024-02-03 | Outpatient (CLI) | payer BC, SELFPAY ==
--- NOTE | 2024-02-03 12:30 | US_ITS ---
STUDY: ULTRASOUND BREAST - RIGHT REASON FOR EXAM: Female, 34 years old. Right breast lump. Patient is 9 weeks . TECHNIQUE: Axial and longitudinal images of the RIGHT breast were performed with a high resolution ultrasound transducer. # OF IMAGES: 12 COMPARISON: None. FINDINGS: RIGHT Breast: The upper axillary region of the right breast was examined with ultrasound. No sonographic abnormality is seen. US/Breast Limited Unilateral IMPRESSION: No sonographic abnormality is seen. ASSESSMENT CATEGORY: BIRADS Category 1: Negative. A letter regarding these results will be sent to the patient by the facility within 30 days. Electronically Signed: Carlos Barrera MD at 14:52 EDT ,
--- OUTSIDE RECORDS SUMMARY | 2024-02-03 12:45 | XMS RPT_ITS | CCD ---
Author Organization [facility] Care Team Providers Care Metal Finisher Name Role Phone LORETA GRANDE Unavailable Unavailable LORETA GRANDE Unavailable Unavailable Jono Lopez DO Primary Care Provider Unavailable Primary Care Provider KYLER Macias Referring Unavailable Allergies Allergy Classification Reported Allergen(s) Allergy Type Date of Onset Reaction(s) Facility (4 sources) traMADol; Translations: [TRAMADOL] Drug Allergy 02-17-2017 [facility] Medications Current Medications Medication Drug Class(es) Dates Sig (Normalized) Sig (Original) acetaminophen 325 mg / oxyCODONE hydrochloride 5 mg oral tablet (3 sources) Opioid Agonist Start: 02-12-2017 oxyCODONE-acetamino phen (PERCOCET) 5-325 mg tablet 0 02/12/2017 Active ciprofloxacin 500 mg oral tablet (3 sources) Quinolone Antimicrobial Start: 02-14-2017 ciprofloxacin HCl (CIPRO) 500 mg tablet 02/14/2017 Active Ethinyl Estradiol / norgestimate (3 sources) Progestin, Estrogen Start: 02-07-2017 take 1 tablet by mouth once daily TRI-ESTARYLLA 0.18/0.215/0.25 mg-35 mcg (28) tab ONE PILL BY MOUTH ONCE A DAY 3 02/07/2017 Active Comment on above: ONE PILL BY MOUTH ON CE A DAY ibuprofen 400 mg oral tablet (3 sources) Nonsteroidal Anti-inflammatory Drug Start: 02-14-2017 ibuprofen (MOTRIN) 400 mg tablet 02/14/2017 Active ondansetron 4 mg disintegrating oral tablet (3 sources) Serotonin-3 Receptor Antagonist Start: 02-12-2017 take 1 tablet by mouth every eight hours for nausea ondansetron orally disintegrating (ZOFRAN ODT) 4 mg disintegrating tablet dissolve 1 tablet ON TONGUE every 8 hours if needed for nausea 0 02/12/2017 Active Comment on above: dissolve 1 tablet ON TONGUE every 8 hours if needed for nausea pantoprazole 40 mg delayed release oral tablet (3 sources) Proton Pump Inhibitor Start: 02-14-[address] (PROTONIX) 40 mg tablet 02/14/2017 Active promethazine hydrochloride 25 mg oral tablet (3 sources) Phenothiazine Start: 02-14-2017 promethazine (PHENERGAN) 25 mg tablet 02/14/2017 Active Problems Active Problems Problem Classification Problem Date Documented Da te Episodic/Chronic Other female genital disorders (2 sources) Pain in female genitalia on intercourse; Translations: [Unspecified dyspareunia] Onset: 05-18-2022 05-18-2022 Chronic Other injuries and conditions due to external causes (2 sources) Injury of toe of left foot; Translations: [Unspecified injury of left foot, initial encounter] 11-07-2023 Episodic Past or Other Problems Problem Classification Problem Date Documented Da te Episodic/Chronic Other connective tissue disease (2 sources) Increased muscle tone; Translations: [Other specified disorders of muscle] Onset: 05-18-2022 05-18-2022 Episodic Results Test Name Value Interpretation Reference Range Facility [facility] 11-07-2023 CNOV Office Visit (UCWSTR ) ----- TAM MALIK ([id number]) 1990 F Date Time Provider Department 11/07/23 3:15 PM KYLER BLAS [facility] During your visit today, we recorded the following information about you: Temperature Pulse Respiration Blood pressure 97.8 degrees 80/minute 21/minute 110/78 Weight 52.8 kg Kyler Blas APRN.SPINNING LATHE OPERATOR HYDRAULIC 11/07/2023 3:52 PM Signed Subjective HPI Nontoxic-appearing female presents urgent care chief complaint left great toe pain. Duration of symptom 1 day. Associated symptoms left great toe injury. Patient states that she trips striking her toe on a baby gate. Presents today for evaluation. Has noticed some bruising mild swelling. Pain with palpation to the lateral aspect of toe. No fractures or surgeries previously. No ankle pain. No midfoot pain. No weakness. Denies any other injuries. Past medical history prescription medications allergies reviewed. Denies chance of . Is not breast-feeding. .Patient presents with: Trauma: Left foot great toe injury x 1 day No past medical history on file. No past surgical history on file. ALLERGIES Tramadol MEDICATIONS ciprofloxacin HCl (CIPRO) 500 mg tablet (Patient not taking: Reported on 11/07/2023) ibuprofen (MOTRIN) 400 mg tablet (Patient not taking: Reported on 11/07/2023) TRI-ESTARYLLA 0.18/0.215/0.25 mg-35 mcg (28) tab ONE PILL BY MOUTH ONCE A DAY (Patient not taking: Reported on 11/07/2023) ondansetron orally disintegrating (ZOFRAN ODT) 4 mg disintegrating tablet dissolve 1 tablet ON TONGUE every 8 hours if needed for nausea (Patient not taking: Reported on 11/07/2023) oxyCODONE-acetaminophen (PERCOCET) 5-325 mg tablet (Patient not taking: Reported on 11/07/2023) pantoprazole DR (PROTONIX) 40 mg tablet (Patient not taking: Reported on 11/07/2023) promethazine (PHENERGAN) 25 mg tablet (Patient not taking: Reported on 11/07/2023) No family history on file. Social History Tobacco Use Smoking status: Never Smokeless tobacco: Never Substance Use Topics Alcohol use: No Drug use: No BP 110/78 Pulse 80 Temp 36.6 ?C (97.8 ?F) Resp 21 Wt 52.8 kg (116 lb 6.[address]) [facility] 02/10/2017 SpO2 99% Review of Systems Constitutional: Negative for chills, fever and malaise/fatigue. HENT: Negative for congestion, ear discharge, ear pain, sinus pain and sore throat. Eyes: Negative for blurred vision, pain, discharge and redness. Respiratory: Negative for cough, hemoptysis, sputum production, shortness of breath, wheezing and stridor. Cardiovascular: Negative for chest pain. Gastrointestinal: Negative for abdominal pain, diarrhea, nausea and vomiting. Musculoskeletal: Positive for joint pain. Negative for myalgias. Skin: Negative for itching and rash. Neurological: Negative for dizziness and headaches. Objective Physical Exam Constitutional: General: She is not in acute distress. Appearance: She is not toxic-appearing. HENT: Head: Normocephalic. Nose: Nose normal. Eyes: Pupils: Pupils are equal, round, and reactive to light. Cardiovascular: Rate and Rhythm: Normal rate. Pulmonary: Effort: Pulmonary effort is normal. No respiratory distress. Musculoskeletal: Cervical back: Normal range of motion. Left ankle: Normal. Left Achilles Tendon: No tenderness. Feet: Comments: Ecchymosis mild edema noted left great toe. Pain with palpation lateral aspect. Neurovascular intact. No breaks of skin. No pain with palpation over metatarsal joint. No pain with palpation over midfoot or hindfoot. No pain with palpation over metatarsals. Skin: General: Skin is warm and dry. Neurological: General: No focal deficit present. Mental Status: She is alert. ASSESSMENT/PLAN: 1. Injury of toe on left foot, initial encounter - ICD9: 959.7, ICD10: S99.922A - XR TOE AP/LAT/OBL LEFT FINDINGS: No acute fracture or dislocation identified. Joint spaces preserved. IMPRESSION IMPRESSION: No radiographic evidence of acute osseous injury No acute findings noted on x-ray. Treat as contusion. Follow-up with podiatry symptoms do not improve 7 to 10 days. Patient was educated on supportive therapies. Patient will follow up with primary care provider as needed. Patient was instructed to immediately proceed to emergency room for any new, worsening, or symptoms lasting longer than anticipated. The patient's clinical presentation is otherwise unremarkable at this time. Based on exam and clinical finding, the patient is stable for discharge. Plan of care was discussed with patient. Patient verbalizes understanding and agrees to plan of care. This note was generated using [employer] software. It may contain errors in wording, punctuation, or spelling. Kyler Blas APRN.SPINNING LATHE OPERATOR HYDRAULIC Allergies As of Date: 11/07/2023 Noted Allergy Reaction TRAMADOL 02/17/2017 4 - Hives Date Reviewed: 11/07/2023 Reviewed by (more content not included)... Normal [facility] XR TOE 3V AP/LAT/OBL LTon XR TOE 3V AP/LAT/OBL LT * * *Final Report* * * DATE OF EXAM: Nov 07 2023 3:35PM WOX [id number] - XR TOE 3V AP/LAT/OBL LT / PROCEDURE REASON: Injury of toe on left foot, initial encounter * * * * Physician Interpretation * * * * TITLE: XR TOE 3V AP/LAT/OBL LT CLINICAL INDICATION: Status post fall with pain TECHNIQUE: 3 view radiographic study of the left great toe COMPARISON: None FINDINGS: No acute fracture or dislocation identified. Joint spaces preserved. IMPRESSION: No radiographic evidence of acute osseous injury Solids Control Technician[facility] Transcribe Date/Time: Nov 07 2023 3:39P Dictated by : MALLORY ROSADO MD This examination was interpreted and the report reviewed and electronically signed by: MLALORY ROSADO MD on Nov 07 2023 3:40PM EST [id number] Normal [facility] XR Toes - left 3 Viewson IMPRESSION: No radiographic evidence of acute osseous injury Solids Control Technician: [facility] Transcribe Date/Time: Nov 07 2023 3:39P Dictated by : MALLORY ROSADO MD This examination was interpreted and the report reviewed and electronically signed by: MALLORY ROSADO MD on Nov 07 2023 3:40PM EST DIVISION OF RADIOLOGY * * *Final Report* * * DATE OF EXAM: Nov 07 2023 3:35PM WOX [id number] - XR TOE 3V AP/LAT/OBL LT / PROCEDURE REASON: Injury of toe on left foot, initial encounter * * * * Physician Interpretation * * * * TITLE: XR TOE 3V AP/LAT/OBL LT CLINICAL INDICATION: Status post fall with pain TECHNIQUE: 3 view radiographic study of the left great toe COMPARISON: None FINDINGS: No acute fracture or dislocation identified. Joint spaces preserved. DIVISION OF RADIOLOGY Provider, [facility] - 11/07/2023 * * *Final Report* * * DATE OF EXAM: Nov 07 2023 3:35PM WOX 5268 - XR TOE 3V AP/LAT/OBL LT / PROCEDURE REASON: Injury of toe on left foot, initial encounter * * * * Physician Interpretation * * * * TITLE: XR TOE 3V AP/LAT/OBL LT CLINICAL INDICATION: Status post fall with pain TECHNIQUE: 3 view radiographic study of the left great toe COMPARISON: None FINDINGS: No acute fracture or dislocation identified. Joint spaces preserved. IMPRESSION IMPRESSION: No radiographic evidence of acute osseous injury Solids Control Technician: PSCB Transcribe Date/Time: Nov 07 2023 3:39P Dictated by : MALLORY ROSADO MD This examination was interpreted and the report reviewed and electronically signed by: MALLORY ROSADO MD on Nov 07 2023 3:40PM EST [facility] Radiology Study observation (narrative) [facility] XR Toes - left 3 ViewsOrdere d By: [facility] Provider on 11-07-2023 [facility] US PELVIS NON-OB W/TRANSVAGI NALon 02-25-2017 US PELVIS NON-OB W/TRANSVAGINAL ORIGINALTransvaginal pelvic ultrasound, 02/25/2017. CLINICAL INFORMATION: Pain, patient reports recent kidney infection. COMPARISON: None. Retroverted uterus measures 9.2 x 3.6 x 4.3 cm. The myometrial echogenicity is homogeneous and felt to be normal. Endometrial thickness 10 mm, likely physiologic. Right and left ovaries measure 2.6 x 1.3 x 3.9 and 4.5 x 2.1 x 3.4 cm size respectively. Both ovaries show evidence of blood flow. Both contain follicles. Largest follicle in left ovary is 25 x 15 x 22 mm. There is a very small amount of pelvic peritoneal fluid, likely physiologic. IMPRESSION: No significant abnormality. The dominant 25 mm follicle in left ovary is considered a benign finding and requires no imaging follow-up. Interpreted By: Morales Oviedo MDPreliminary Report By: Morales Oviedo MDElectronically Signed By: Morales Oviedo MD Dictated Date: 02/25/2017 4:55:59 PM Prelim Date: 02/25/2017 4:55:59 PM Sign Date: 02/25/2017 4:59:01 PM Normal [facility] Vital Signs Date Time Vital Sign Value Performing Clinician Jamey merchant 11-07-2023 15:120400 Body temperature 97.81 [degF] Kyler Blas APRN.SPINNING LATHE OPERATOR HYDRAULIC Work Phone: [facility] 11-07-2023 15:120400 Body weight 52.8 kg Kyler Blas APRN.CNP Work Phone: [facility] 11-07-2023 15:12-0400 Diastolic blood pressure 78 mm[Hg] Kyler Blas ASSISTANT GENERAL MANAGER.SPINNING LATHE OPERATOR HYDRAULIC Work Phone: [facility] 11-07-2023 15:12-0400 Heart rate 80 /min Kyler Blas ASSISTANT GENERAL MANAGER.SPINNING LATHE OPERATOR HYDRAULIC Work Phone: [facility] 11-07-2023 15:12-0400 Respiratory rate 21 /min Kyler Blas ASSISTANT GENERAL MANAGER.SPINNING LATHE OPERATOR HYDRAULIC Work Phone: [facility] 11-07-2023 15:12-0400 SaO2% (BldA) [Mass fraction] 99 % Kyler Blas ASSISTANT GENERAL MANAGER.SPINNING LATHE OPERATOR HYDRAULIC Work Phone: [facility] 11-07-2023 15:12-0400 Systolic blood pressure 110 mm[Hg] Kyler Blas ASSISTANT GENERAL MANAGER.SPINNING LATHE OPERATOR HYDRAULIC Work Phone: [facility] Encounters Encounter Date Encounter Type Care Provider Facility Start: 11-07-2023 End: 11-07-2023 Subsequent hospital visit by physician [facility] Kimi Work Phone: Radiology Comment on above: Injury of toe on lef t foot, initial encounter [S99.922A] Start: 11-07-2023 End: 11-07-2023 ambulatory KYLER BLAS Facility:[facility] Start: 11-07-2023 End: 11-07-2023 Office outpatient visit 15 minutes Kyler Blas APRN.SPINNING LATHE OPERATOR HYDRAULIC Work Phone: [facility] Comment on above: Injury of toe on lef t foot, initial encounter (Primary Dx) Start: 09-29-2021 Telephone encounter Sindy altamirano MD Work Phone: [facility] Kimi Comment on above: Appointment Start: 02-25-2017 End: 02-26-2017 Ambulatory [facility] Facility:B Procedures Date Procedure Procedure Detail Performing Clinician Start: 11-07-2023 Radex toe minimum 2 views Kyler Blas APRN.SPINNING LATHE OPERATOR HYDRAULIC Work Phone: Plan of Treatment Date Care Activity Detail Author Start: 10-14-2031 Urine microalbumin profile DTa P,Tdap,Td Vaccine (2 - Td or Tdap) [facility] Start: 12-11-2023 Covid-19 Vaccine () Covid-19 Vaccine () [facility] Start: 12-11-2023 Influenza vaccination Influenza Vacc ine (#1) [facility] Start: 12-10-2022 Covid-19 Vaccine () Covid-19 Vaccine () [facility] Start: 12-10-2021 Influenza vaccination INFLUENZA (Sea son Ended) [facility] Start: 2021 HPV TESTING HPV TESTING [facility] Start: 01-26-2012 PAP TESTING PAP TESTING [facility] Start: 01-26-2012 Screening for malign ant neoplasm of cervix Cervical Cancer Screening [facility] Start: 2010 Hepatitis B Vaccine (1 of 3 - 19+ 3-dose series) Hepatitis B Vaccine (1 of 3 - 19+ 3-dose series) [facility] Start: 2010 Urine microalbumin profile DTAP,TDAP ,TD (1 - Tdap) [facility] Start: 2009 Anxiety Screening Anxiety Screening [facility] Start: 2009 Depression Screening Depression Scre [facility] Start: 2009 HEPATITIS C SCREENING HEPATITIS C [facility] Start: 2009 Hepatitis C screening Hepatitis C [facility] Start: 2009 HIV SCREENING HIV SCREENING [facility] Start: 2009 HIV screening HIV Screening [facility] Start: 2003 Adult depression scr ning assessment DEPRESSION SCREENING [facility] Start: 01-26-1996 COVID-19 VACCINE (#1) COVID-19 VACCI NE (#1) [facility] Payers Date Payer Category Payer Unknown [employer] PPO [id number] 2020-Present [phone] [address] [place] [address] PPO [id number] 2017 Unknown [id number] 2016 Unknown [employer] PPO OOS [id number] 2016-Present [phone] [address] [place] [address] PPO [id number] Social History Date Type Detail Facility Start: 02-17-2017 End: 11-07-2023 Tobacco smoking status NHIS Never smoked tobacco [facility] Start: 02-17-2017 End: 11-07-2023 Tobacco use and exposure Smokeless tobacco non-user [facility] Start: 02-17-2017 End: 11-07-2023 Alcohol intake Current non-drinker of alcohol (finding) [facility] Start: 1990 Sex Assigned At Not on file C [facility] Start: 05-18-2022 End: 11-07-2023 History of Social function [facility] Start: 05-18-2022 End: 11-07-2023 Tobacco use panel [facility] National Score (1-10 0), lower number is lower risk 50 [facility] History of Present illness Narrative 11-07-2023 Jami Hancock RT(R) - 11/07/2023 3:30 PM EDT Note Date & Type Note Facility 11-07-2023 History of Presen t illness Narrative Radiology Service Progress Note PATIENT NAME: Tam Malik DATE OF SERVICE: November 07, 2023 TIME: 3:29 PM PATIENT IDENTITY VERIFICATION COMPLETED USING TWO (2) IDENTIFIERS: Name and Date of confirmed by patient verbally. FALL SCREENING: Has the patient had 2 falls in the last year or 1 fall with injury or currently using an Ambulatory Assistive Device (Walker, Cane, Wheelchair, Crutches, etc.)? No PATIENT GENDER DATA: Female. status: : No status: NO. PATIENT RELEVANT IMPLANT DATA REVIEWED: Not Applicable PATIENT PRESENTS WITH AN IMPLANTABLE OR ATTACHED SADDLE AND SIDE WIRE STITCHER: No RADIOLOGY DEPARTMENT: General X-ray: Exam(s) Completed: Lower Extremity X-Ray(s): Toes, Left PERIPHERAL IV DATA: Not applicable SIGNED BY: RT Aleksandar(R) November 07, 2023 3:29 PM documented in this encounter [facility] Progress note 11-07-2023 Note Date & Type Note Facility 11-07-2023 Note HNO ID: [id number] Author: JAMI HANCOCK RT(R) Service: Radiology Author Type: Technologist Type: Progress Notes Filed: 11/07/2023 15:36 Note Text: Radiology Service Progress Note PATIENT NAME: Tam Malik DATE OF SERVICE: November 07, 2023 TIME: 3:29 PM PATIENT IDENTITY VERIFICATION COMPLETED USING TWO (2) IDENTIFIERS: Name and Date of confirmed by patient verbally. FALL SCREENING: Has the patient had 2 falls in the last year or 1 fall with injury or currently using an Ambulatory Assistive Device (Walker, Cane, Wheelchair, Crutches, etc.)? No PATIENT GENDER DATA: Female. status: : No status: NO. PATIENT RELEVANT IMPLANT DATA REVIEWED: Not Applicable PATIENT PRESENTS WITH AN IMPLANTABLE OR ATTACHED SADDLE AND SIDE WIRE STITCHER: No RADIOLOGY DEPARTMENT: General X-ray: Exam(s) Completed: Lower Extremity X-Ray(s): Toes, Left PERIPHERAL IV DATA: Not applicable SIGNED BY: RT Aleksandar(R) November 07, 2023 3:29 PM [facility] Progress note 11-07-2023 Note Date & Type Note Facility 11-07-2023 Note HNO ID: [id number] Author: KYLER BLAS APRN.SPINNING LATHE OPERATOR HYDRAULIC Service: ? Author Type: Nurse Practitioner Type: Progress Notes Filed: 11/07/2023 15:52 Note Text: Subjective HPI Nontoxic-appearing female presents urgent care chief complaint left great toe pain. Duration of symptom 1 day. Associated symptoms left great toe injury. Patient states that she trips striking her toe on a baby gate. Presents today for evaluation. Has noticed some bruising mild swelling. Pain with palpation to the lateral aspect of toe. No fractures or surgeries previously. No ankle pain. No midfoot pain. No weakness. Denies any other injuries. Past medical history prescription medications allergies reviewed. Denies chance of . Is not breast-feeding. .Patient presents with: Trauma: Left foot great toe injury x 1 day No past medical history on file. No past surgical history on file. ALLERGIES Tramadol MEDICATIONS ciprofloxacin HCl (CIPRO) 500 mg tablet (Patient not taking: Reported on 11/07/2023) ibuprofen (MOTRIN) 400 mg tablet (Patient not taking: Reported on 11/07/2023) TRI-ESTARYLLA 0.18/0.215/0.25 mg-35 mcg (28) tab ONE PILL BY MOUTH ONCE A DAY (Patient not taking: Reported on 11/07/2023) ondansetron orally disintegrating (ZOFRAN ODT) 4 mg disintegrating tablet dissolve 1 tablet ON TONGUE every 8 hours if needed for nausea (Patient not taking: Reported on 11/07/2023) oxyCODONE-acetaminophen (PERCOCET) 5-325 mg tablet (Patient not taking: Reported on 11/07/2023) pantoprazole DR (PROTONIX) 40 mg tablet (Patient not taking: Reported on 11/07/2023) promethazine (PHENERGAN) 25 mg tablet (Patient not taking: Reported on 11/07/2023) No family history on file. Social History Tobacco Use Smoking status: Never Smokeless tobacco: Never Substance Use Topics Alcohol use: No Drug use: No BP 110/78 Pulse 80 Temp 36.6 ?C (97.8 ?F) Resp 21 Wt 52.8 kg (116 lb 6.5 oz) LMP 02/10/2017 SpO2 99% Review of Systems Constitutional: Negative for chills, fever and malaise/fatigue. HENT: Negative for congestion, ear discharge, ear pain, sinus pain and sore throat. Eyes: Negative for blurred vision, pain, discharge and redness. Respiratory: Negative for cough, hemoptysis, sputum production, shortness of breath, wheezing and stridor. Cardiovascular: Negative for chest pain. Gastrointestinal: Negative for abdominal pain, diarrhea, nausea and vomiting. Musculoskeletal: Positive for joint pain. Negative for myalgias. Skin: Negative for itching and rash. Neurological: Negative for dizziness and headaches. Objective Physical Exam Constitutional: General: She is not in acute distress. Appearance: She is not toxic-appearing. HENT: Head: Normocephalic. Nose: Nose normal. Eyes: Pupils: Pupils are equal, round, and reactive to light. Cardiovascular: Rate and Rhythm: Normal rate. Pulmonary: Effort: Pulmonary effort is normal. No respiratory distress. Musculoskeletal: Cervical back: Normal range of motion. Left ankle: Normal. Left Achilles Tendon: No tenderness. Feet: Comments: Ecchymosis mild edema noted left great toe. Pain with palpation lateral aspect. Neurovascular intact. No breaks of skin. No pain with palpation over metatarsal joint. No pain with palpation over midfoot or hindfoot. No pain with palpation over metatarsals. Skin: General: Skin is warm and dry. Neurological: General: No focal deficit present. Mental Status: She is alert. ASSESSMENT/PLAN: 1. Injury of toe on left foot, initial encounter - ICD9: 959.7, ICD10: S99.922A - XR TOE AP/LAT/OBL LEFT FINDINGS: No acute fracture or dislocation identified. Joint spaces preserved. IMPRESSION IMPRESSION: No radiographic evidence of acute osseous injury No acute findings noted on x-ray. Treat as contusion. Follow-up with podiatry symptoms do not improve 7 to 10 days. Patient was educated on supportive therapies. Patient will follow up with primary care provider as needed. Patient was instructed to immediately proceed to emergency room for any new, worsening, or symptoms lasting longer than anticipated. The patient's clinical presentation is otherwise unremarkable at this time. Based on exam and clinical finding, the patient is stable for discharge. Plan of care was discussed with patient. Patient verbalizes understanding and agrees to plan of care. This note was generated using [employer] software. It may contain errors in wording, punctuation, or spelling. Kyler Blas APRN.[facility] History of Present illness Narrative 11-07-2023 Kyler Blas APRN.JUAN - 11/07/2023 3:14 PM EDT Note Date & Type Note Facility 11-07-2023 History of Presen t illness Narrative Images from the original note were not included. Subjective HPI Nontoxic-appearing female presents urgent care chief complaint left great toe pain. Duration of symptom 1 day. Associated symptoms left great toe injury. Patient states that she trips striking her toe on a baby gate. Presents today for evaluation. Has noticed some bruising mild swelling. Pain with palpation to the lateral aspect of toe. No fractures or surgeries previously. No ankle pain. No midfoot pain. No weakness. Denies any other injuries. Past medical history prescription medications allergies reviewed. Denies chance of . Is not breast-feeding. .Patient presents with: Trauma: Left foot great toe injury x 1 day No past medical history on file. No past surgical history on file. ALLERGIES Tramadol MEDICATIONS ciprofloxacin HCl (CIPRO) 500 mg tablet (Patient not taking: Reported on 11/07/2023) ibuprofen (MOTRIN) 400 mg tablet (Patient not taking: Reported on 11/07/2023) TRI-ESTARYLLA 0.18/0.215/0.25 mg-35 mcg (28) tab ONE PILL BY MOUTH ONCE A DAY (Patient not taking: Reported on 11/07/2023) ondansetron orally disintegrating (ZOFRAN ODT) 4 mg disintegrating tablet dissolve 1 tablet ON TONGUE every 8 hours if needed for nausea (Patient not taking: Reported on 11/07/2023) oxyCODONE-acetaminophen (PERCOCET) 5-325 mg tablet (Patient not taking: Reported on 11/07/2023) pantoprazole DR (PROTONIX) 40 mg tablet (Patient not taking: Reported on 11/07/2023) promethazine (PHENERGAN) 25 mg tablet (Patient not taking: Reported on 11/07/2023) No family history on file. Social History Tobacco Use Smoking status: Never Smokeless tobacco: Never Substance Use Topics Alcohol use: No Drug use: No BP 110/78 Pulse 80 Temp 36.6 C (97.8 F) Resp 21 Wt 52.8 kg (116 lb 6.5 oz) LMP 02/10/2017 SpO2 99% Review of Systems Constitutional: Negative for chills, fever and malaise/fatigue. HENT: Negative for congestion, ear discharge, ear pain, sinus pain and sore throat. Eyes: Negative for blurred vision, pain, discharge and redness. Respiratory: Negative for cough, hemoptysis, sputum production, shortness of breath, wheezing and stridor. Cardiovascular: Negative for chest pain. Gastrointestinal: Negative for abdominal pain, diarrhea, nausea and vomiting. Musculoskeletal: Positive for joint pain. Negative for myalgias. Skin: Negative for itching and rash. Neurological: Negative for dizziness and headaches. Objective Physical Exam Constitutional: General: She is not in acute distress. Appearance: She is not toxic-appearing. HENT: Head: Normocephalic. Nose: Nose normal. Eyes: Pupils: Pupils are equal, round, and reactive to light. Cardiovascular: Rate and Rhythm: Normal rate. Pulmonary: Effort: Pulmonary effort is normal. No respiratory distress. Musculoskeletal: Cervical back: Normal range of motion. Left ankle: Normal. Left Achilles Tendon: No tenderness. Feet: Comments: Ecchymosis mild edema noted left great toe. Pain with palpation lateral aspect. Neurovascular intact. No breaks of skin. No pain with palpation over metatarsal joint. No pain with palpation over midfoot or hindfoot. No pain with palpation over metatarsals. Skin: General: Skin is warm and dry. Neurological: General: No focal deficit present. Mental Status: She is alert. ASSESSMENT/PLAN: 1. Injury of toe on left foot, initial encounter - ICD9: 959.7, ICD10: S99.922A - XR TOE AP/LAT/OBL LEFT FINDINGS: No acute fracture or dislocation identified. Joint spaces preserved. IMPRESSION IMPRESSION: No radiographic evidence of acute osseous injury No acute findings noted on x-ray. Treat as contusion. Follow-up with podiatry symptoms do not improve 7 to 10 days. Patient was educated on supportive therapies. Patient will follow up with primary care provider as needed. Patient was instructed to immediately proceed to emergency room for any new, worsening, or symptoms lasting longer than anticipated. The patient's clinical presentation is otherwise unremarkable at this time. Based on exam and clinical finding, the patient is stable for discharge. Plan of care was discussed with patient. Patient verbalizes understanding and agrees to plan of care. This note was generated using [employer] software. It may contain errors in wording, punctuation, or spelling. Kyler Blas APRN.SPINNING LATHE OPERATOR HYDRAULIC documented in this encounter [facility] Note 09-30-2021 Telephone Encounter - Sharlene Salguero Pss - 09/30/2021 9:07 AM EDTTelephone Encounter - Jackson Funes RN - 09/30/2021 8:25 AM EDTTelephone Encounter - Akanksha Garcia RN - 09/29/2021 6:01 PM EDT Note Date & Type Note Facility 09-30-2021 Miscellaneous Notes Spoke with mother and answered all of her questions she will call us to schedule NB visit once child is born. No need for a meet and greet at this time. Attempted to call, unable to leave message mailbox is full. Jackson Funes RN patient is calling asking to schedule a meet a greet as patient is due in November. please contact patient to schedule appt. documented in this encounter [facility] Evaluation note Note Date & Type Note Facility Evaluation note Diagnosis Injury of toe on left foot, initial encounter- Primary Injury of toe on left foot, initial encounter documented in this encounter [facility] Evaluation note Note Date & Type Note Facility Evaluation note Diagnosis Injury of toe on left foot, initial encounter documented in this encounter [facility] Reason for referral (narrative) Diagnostic Procedure Only (Urgent) - Closed Note Date & Type Note Facility Reason for referral (narrati ve) Specialty Diagnoses / Procedures Referred By Nimco morton Referred To Contact XR IMAGING Diagnoses Injury of toe on left foot, initial encounter Procedures XR TOE AP/LAT/OBL LEFT RADEX TOE MINIMUM 2 VIEWS Kyler Blas APRN.CNP [address] [place] [address] [place] [address] Referral ID Status Reason Start Date Expiration Date V isits Requested Visits Authorized [id number] Closed Auto-Generate d Referral 11/07/2023 12/06/2024 1 1 [facility] Reason for referral (narrative) Diagnostic Procedure Only (Urgent) - Closed Note Date & Type Note Facility Reason for referral (narrati ve) Specialty Diagnoses / Procedures Referred By Contac t Referred To Contact XR IMAGING Diagnoses Injury of toe on left foot, initial encounter Procedures XR TOE AP/LAT/OBL LEFT RADEX TOE MINIMUM 2 VIEWS Kyler Blas APRN.JUAN [address] [place] [address] [place] [address] Referral ID Status Reason Start Date Expiration Date V isits Requested Visits Authorized [id number] Closed Auto-Generate d Referral 11/07/2023 12/06/2024 1 1 [facility] Reason for visit Narrative Diagnostic Procedure Only (Urgent) - Closed Note Date & Type Note Facility Reason for visit Narrative Specialty Diagnoses / Procedures Referred By Nimco morton Referred To Contact XR IMAGING Diagnoses Injury of toe on left foot, initial encounter Procedures XR TOE AP/LAT/OBL LEFT RADEX TOE MINIMUM 2 VIEWS Kyler Blas APRN.JUAN [address] [place] [address] [place] [address] Referral ID Status Reason Start Date Expiration Date V isits Requested Visits Authorized [id number] Closed Auto-Generate d Referral 11/07/2023 12/06/2024 1 1 [facility] Summary Purpose Family History No Family History Records FoundNo Family History Records Found Advance Directives No Advanced Directives Records FoundNo Advanced Directives Records Found Additional Source Comments INFORMATION SOURCE (unrecogn ized section and content) DATE CREATED AUTHOR 10/04/2017 [facility] ([place]) DATE CREATED AUTHOR AUTHOR'S ORGANIZ ATION 11/09/2023 [facility] Source Comments (unrecognize d section and content) In the event this informatio n is protected by the Federal Confidentiality of Alcohol and Drug Abuse Patient Records regulations: The Federal rules restrict any use of the information to criminally investigate or prosecute any alcohol or drug abuse patient.[facility] the event this information is protected by the Federal Confidentiality of Alcohol and Drug Abuse Patient Records regulations: The Federal rules restrict any use of the information to criminally investigate or prosecute any alcohol or drug abuse patient.[facility] the event this information is protected by the Federal Confidentiality of Alcohol and Drug Abuse Patient Records regulations: The Federal rules restrict any use of the information to criminally investigate or prosecute any alcohol or drug abuse patient.[facility] Reason for Visit (unrecogniz ed section and content) Reason Comments Appointment Reason Comments Trauma Left foot great toe injury x 1 day Care Teams (unrecognized sec tion and content) Metal Finisher Relationship Specialty Start Date End Date JessicaJono stein Radha, DO [address] [place] [address] PCP - General Family Practice 06/19/15 FOR RECORDS PERTAINING TO PATIENTS WHO ARE OR HAVE BEEN ENROLLED IN A CHEMICAL DEPENDENCY/SUBSTANCEABUSE PROGRAM, SOME INFORMATION MAY BE OMITTED. This clinical summary was aggregated from multiple sources. Caution should be exercised in using it in the provision of clinical care. This summary normalizes information from multiple sources, and as a consequence, information in this document may materially change the coding, format and clinical context of patient data. In addition, data may be omitted in some cases. CLINICAL DECISIONS SHOULD BE BASED ON THE PRIMARY CLINICAL RECORDS. [employer] [facility]. provides no warranty or guarantee of the accuracy or completeness of information in this document.
== END | disposition home or self-care (01) ==
PROVIDERS: PCP Nurse Practitioner Family; Referring Provider Advanced Practice Midwife; Visit Provider Advanced Practice Midwife
DX: O99.891 Other specified diseases and conditions complicating pregnancy (principal); N63.10 Unspecified lump in the right breast, unspecified quadrant; Z3A.09 9 weeks gestation of pregnancy
CPT/HCPCS: 76642

== ENCOUNTER → 2024-02-14 | Outpatient (CLI) | payer BC, SELFPAY ==
[2024-02-14 15:20] LABS: Absolute Lymphocyte Count 1.37 X10^3/uL (0.83-4.51); Absolute Neutrophil Count 5.3 X10^3/uL (2.0-7.7); Basophil# 0.03 X10^3/uL; Basophil% 0.4 % (0-1); Eosinophils% 1.4 % (0-5); Hematocrit 32.9 % (37-47); Hemoglobin 11.3 g/dL (12.0-15.0); Lymphocyte # 1.37 X10^3/ul (0.83-4.51); Lymphocyte % 18.9 % (19-41); Mean Corp Hgb Conc 34.3 g/dL (32-36); Mean Corpuscular Hgb 29.8 pg (27.0-32.0); Mean Corpuscular Volume 86.8 fL (81-99); Mean Platelet Vol. 10.7 fl (6.2-12.0); Monocyte# 0.45 X10^3/uL; Monocyte% 6.2 % (0-10); NRBC Flagged by Analyzer 0 % (0-5); Neutrophil # 5.28 X10^3/uL (2.7-7.7); Neutrophil % 72.7 % (47-70); Platelet Count 294 K/mm3 (150-450); RBC Distribution Width CV 14.3 % (11.6-14.6); RBC Distribution Width SD 45.5 fl (35.1-43.9); Red Blood Count 3.79 M/mm3 (4.2-5.4); White Blood Count 7.3 K/mm3 (4.4-11.0)
[2024-02-14 16:25] LABS: HIV - WCH Non-Reactive (Nonreactive); Hepatitis B Surface Antigen Non-Reactive (Nonreactive); Hepatitis C Antibody Non-Reactive (Nonreactive); Rubella IgG Reactive (Nonreactive); Syphilis Antibodies Non-reactive
== END | disposition home or self-care (01) ==
LOC: BWCLAB 13:54
PROVIDERS: PCP Nurse Practitioner Family; Referring Provider Advanced Practice Midwife; Visit Provider Advanced Practice Midwife
DX: O09.90 Supervision of high risk pregnancy, unspecified, unspecified trimester (principal); Z3A.00 Weeks of gestation of pregnancy not specified
CPT/HCPCS: 36415; 85025; 86703; 86762; 86780; 86803; 86850; 86900; 86901; 87340

== ENCOUNTER → 2024-06-22 | Outpatient (CLI) | payer BC, SELFPAY ==
[2024-06-22 11:52] LABS: Absolute Lymphocyte Count 1.06 X10^3/uL (0.83-4.51); Absolute Neutrophil Count 5.9 X10^3/uL (2.0-7.7); Basophil# 0.03 X10^3/uL; Basophil% 0.4 % (0-1); Eosinophil# 0.09 X10^3/uL; Eosinophils% 1.2 % (0-5); Hematocrit 33.7 % (37-47); Hemoglobin 11.2 g/dL (12.0-15.0); Lymphocyte # 1.06 X10^3/ul (0.83-4.51); Mean Corp Hgb Conc 33.2 g/dL (32-36); Mean Corpuscular Hgb 31.9 pg (27.0-32.0); Mean Platelet Vol. 10.4 fl (6.2-12.0); Monocyte# 0.47 X10^3/uL; Monocyte% 6.2 % (0-10); NRBC Flagged by Analyzer 0 % (0-5); Neutrophil # 5.89 X10^3/uL (2.7-7.7); Neutrophil % 77.5 % (47-70); Platelet Count 227 K/mm3 (150-450); RBC Distribution Width CV 12.8 % (11.6-14.6); RBC Distribution Width SD 44.5 fl (35.1-43.9); Red Blood Count 3.51 M/mm3 (4.2-5.4); White Blood Count 7.6 K/mm3 (4.4-11.0)
[2024-06-22 16:06] LABS: Glucose Challenge Gest 1H 50g 69 mg/dL (70-140); HIV Nonreactive (Nonreactive)
[2024-06-22 20:43] LABS: Syphilis Antibodies Nonreactive (Nonreactive)
== END | disposition home or self-care (01) ==
PROVIDERS: Obstetrics & Gynecology; PCP Nurse Practitioner Family; Referring Provider Obstetrics & Gynecology; Visit Provider Obstetrics & Gynecology
DX: O09.90 Supervision of high risk pregnancy, unspecified, unspecified trimester (principal); Z13.1 Encounter for screening for diabetes mellitus; Z3A.00 Weeks of gestation of pregnancy not specified
CPT/HCPCS: 36415; 82950; 85025; 86703; 86780

== ENCOUNTER 2024-08-13 14:17 | Outpatient (CLI) | payer BC, SELFPAY ==
[2024-08-13 14:39] VITALS: BP 113/71; PULSE 82; RESP 13; O2SAT 99
[2024-08-13 15:00] VITALS: BMI 24.3
--- NOTE | 2024-08-13 19:35 | OB.TRI.HP_ITS ---
HPI - General HPI Narrative TAM DE LA O, is a 34 y/o @ 36 weeks 2 days who presents to L&D for an NST due to borderline low FLORIN. Maternal Data Information VALERY Calculator Estimated Delivery Date Method Current WG Current Estimate 09/08/24 LMP (Certain) 36w 5d Other Estimates 09/09/24 Ultrasound #1 36w 4d PFSH PFSH Medical History Missed Genetic testing of female Leg cramps Hx of abnormal cervical Pap smear Chemical Wears contact lenses Wears glasses Low iron Migraine headache Blackout Non-smoker Anxiety Acute pyelonephritis Home Medications ?Medication ?Instructions ?Recorded ?Last Taken ?Type doxylamine succinate 25 mg tablet 25 mg PO QHS PRN sle ep 07/15/23 Unknown History (Unisom (doxylamine)) multivitamin no.47-iron fum 27 1 cap PO DAILY 07/15/23 Unknown History mg-folate no.1 1 mg-dha 300 mg capsule (PNV-DHA) cholecalciferol (vitamin D3) 50 50 mcg PO QDAY 4 Unknown History mcg (2,000 unit) capsule famotidine 20 mg tablet (Pepcid) 20 mg PO BID #60 tabs 06/22/24 Unknown Rx Allergy/AdvReac Type Severity Reaction Status Date / Time tramadol Allergy Hives Verified 08/15/24 09:30 Family History Mother Thyroid disorder Fibromyalgia Sister Chronic ITP (idiopathic thrombocytopenic purpura) Neutropenia Father Cancer Skin cancer Surgical History H/O perineoplasty H/O dilation and curettage History of nasal septoplasty History of hand surgery History of tonsillectomy and adenoidectomy Social History adopted: No household members: spouse and children number of children: 1 current occupational status: employed current occupation: [employer] current occupational exposures/hazards: No pets and animals: Yes pets and animals: dog(s) history of recent travel: Yes (November) out of state: Yes out of country: No sexually active: Yes Smoking Status: Never smoker alcohol intake: current alcohol intake frequency: holidays/special occasions only details: not while substance use type: does not use well-balanced diet: daily or most days caffeine: No eating out: 1-3 times/week during the past year weight has: remained stable what type of physical activity do you participate in: walking frequency: daily duration: 45-60 minutes/day ni/orthodox: None seatbelt use: always do you feel safe at home: Yes additional social history: Olinda Castorena History 3 Elective abortions Hx Para 1 Spontaneous abortions 1 Hx # Term Pregnancies Ectopic pregnancies Hx # Pregnancies Multiple births # of living children 1 Past Pregnancies Del. Date Name GA/Weeks Outcome Route Bth Weight Infant Gen Labor Lgth Anesthesia Del Locatn Provider FOB 11/20/21 [place] 40 live - full term 9#2oz Male 16hr epidur al [facility] Dominique Thompson 04/26/23 chemical 08/16/23 miscarriage 12 Delivery Date: 11/20/21 Last Updated by: Petrona Mcdowell IOL, post date Delivery Date: 08/16/23 Last Updated by: Akanksha Castellano Suction dilation and curettage, measuring 8 wks 6 days on 08/15/23 Visit Details Expected Delivery Route/Plan Labor Preferences- CB/BF classes: [] labor support person: [] labor intervention preferences: [] pain management options preferred: [] cut cord/dad catch: [] : [] PP control planned: [] discussed possible routes of delivery and associated risks: [] special requests: [] Plans Covid status: [] Flu vaccine: [] Tdap vaccine: given Rhogam:na LARC form signed:declined movement and labor precautions reviewed. Problem list reviewed and updated with the most current plan of care details and appropriate orders placed. Relevant counseling for the gestational age provided. Continue routine care and follow up unless otherwise noted in visit notes/problem list details OB Flowsheet Initial Weight: 117 lb Date -?-?-?-?-?-?-?-?-?-?-?-?- EGA Weight BP Urine Prot -?-?-?-?-?-?-?-?-?-?-?-?- Glucose FHR FuHt Pres Dilation -?-?-?-?-?-?-?-?-?-?-?-?- Effaced St Visit Note 01/30/24 -?-?-?-?-?-?-?-?-?-?-?-?- 8w 2d 117 lb 4 oz (+4 oz) 103/75 -?-?-?-?-?-?-?-?-?-?-?-?- 180 -?-?-?-?-?-?-?-?-?-?-?-?- KW- CRL cons wit h dates. Accepts NIPT. Will schedule appt in 2 weeks for FHT and labs due to hx. 02/14/24 -?-?-?-?-?-?-?-?-?-?-?-?- 10w 3d 119 lb (+2 lb) 105/72 Negative -?-?-?-?-?-?-?-?-?-?-?-?- Negative 174 -?-?-?-?-?-?-?-?-?-?-?-?- JV- CRL still co nsistent with lmp date. labs today. no complaints other than some morning sickness. 02/28/24 -?-?-?-?-?-?-?-?-?-?-?-?- 12w 3d 118 lb (+16 oz) 101/68 Negative -?-?-?-?-?-?-?-?-?-?-?-?- Negative 168 -?-?-?-?-?-?-?-?-?-?-?-?- JV- no lof, vagi nal bleeding, or cramping. having a girl! to get CF testing today. requesting doc only for delivery but more than happy to see the midwives and CAREER TECHNICAL COUNSELOR for office visits. 03/29/24 -?-?-?-?-?-?-?-?-?-?-?-?- 16w 5d 123 lb (+6 lb) 101/67 Negative -?-?-?-?-?-?-?-?-?-?-?-?- Negative 160 -?-?-?-?-?-?-?-?-?-?-?-?- KW- +flutters. U S on 04/16. no vb/cramping. movement and FHT on handheld US today 04/25/24 -?-?-?-?-?-?-?-?-?-?-?-?- 20w 4d 130 lb 2 oz (+13 lb 2 oz) 99/65 Negative -?-?-?-?-?-?-?-?-?-?-?-?- Negative 160 -?-?-?-?-?-?-?-?-?-?-?-?- JV- still having a little morning sickness. normal anatomy scan. 05/24/24 -?-?-?-?-?-?-?-?-?-?-?-?- 24w 5d 134 lb 2 oz (+17 lb 2 oz) 98/64 Negative -?-?-?-?-?-?-?-?-?-?-?-?- Negative 140 -?-?-?-?-?-?-?-?-?-?-?-?- JV- no complaint s today. glucola ordered for next visit. 06/22/24 -?-?-?-?-?-?-?-?-?-?-?-?- 28w 6d 136 lb 2 oz (+19 lb 2 oz) 123/85 -?-?-?-?-?-?-?-?-?-?-?-?- 145 28 -?-?-?-?-?-?-?-?-?-?-?-?- SM- no vb lof go od fm no regular ctx pepcid ordered 07/02/24 -?-?-?-?-?-?-?--?-?-?-?-?- 30w 2d 140 lb 4 oz (+23 lb 4 oz) 94/62 Negative -?-?-?-?-?-?-?-?-?-?-?-?- Negative 140 30 -?-?-?-?-?-?-?-?-?-?-?-?- JV- JV- reflux improved. no lof, vaginal bleeding, or dec fm. normal glucola and cbc. signed LARC today. tdap done last visit. 07/16/24 -?-?-?-?-?-?-?-?-?-?-?-?- 32w 2d 139 lb 6 oz (+22 lb 6 oz) 97/61 Negative -?-?-?-?-?-?-?-?-?-?-?-?- Negative 142 32 -?-?-?-?-?-?-?-?-?-?-?-?- JV- no lof, vagi nal bleeding, or dec fm. still has nausea from indigestion. spreading out pepcid to three times a day now. 07/30/24 -?-?-?-?-?-?-?-?-?-?-?-?- 34w 2d 140 lb 2 oz (+23 lb 2 oz) 101/69 Trace -?-?-?-?-?-?-?-?-?-?-?-?- Negative 145 34 -?-?-?-?-?-?-?-?-?-?-?-?- SM- no vb lof go od fm no reuglar ctx, discussed delivery expectations, had significant tear with dificult healing last time but still wants vaginal , plan growth US at 36-37 08/15/24 -?-?-?-?-?-?-?-?-?-?-?-?- 36w 4d 141 lb 6 oz (+24 lb 6 oz) 96/69 Negative -?-?-?-?-?-?-?-?-?-?-?-?- Negative 150 34 -?-?-?-?-?-?-?-?-?-?-?-?- SM- no vb lof go od fm no reuglar ctx discussed fluid levels repeating again today just to confirm stability due to variation. repeat weekkly until delivery. SM- no vb lof good fm no reu glar ctx discussed fluid levels repeating again today just to confirm stability due to variation. repeat weekkly until delivery. repeat florin 11 cm NST FHR Rate Baby A Baseline: 130 Variability:: Moderate Accelerations:: 15 x 15 Decelerations:: None NST Reactive:: Yes FHR Category:: Category I Assessment & Plan (1) FLORIN (amniotic fluid index) borderline low: COMMENT: weekly florin until delivery (2) Maternal history of obstetrical complications: COMMENT: discussed getting growth US at 36 weeks consider IOL at 40 weeks depending on size due to previous tear with larger head and baby (3) Supervision of high-risk : COMMENT: PRR, , VALERY 09/08/24, girl (name secret) EMILE Wiseman, Jay (4) : QUALIFIERS: Weeks of gestation: 36 weeks Qualified Code(s): Z3A.36 - 36 weeks gestation of COMMENT: DOC ONLY NIPT low risk, unremarkable anatomy, consistent dates. carrier reviewed. ntd screen declined. (5) Anxiety: COMMENT: related to recent miscarriage (6) Cystic fibrosis carrier: COMMENT: negative PLAN: Plan NST is reactive plan to repeat FLORIN tomorrow. Charges/Coding Multi Select Codes Urinary/Genital Urinary/Genital CPT Codes: 48624-29 non-stress test Interp
== END 2024-08-13 15:28 | disposition home or self-care (01) ==
LOC: WPOUT 14:17 → WP 14:18
PROVIDERS: Referring Provider Obstetrics & Gynecology; Visit Provider Obstetrics & Gynecology
DX: O41.03X0 Oligohydramnios, third trimester, not applicable or unspecified (principal); O99.343 Other mental disorders complicating pregnancy, third trimester; F41.9 Anxiety disorder, unspecified; Z3A.36 36 weeks gestation of pregnancy
CPT/HCPCS: 59025; 59050; 99221; G0378

== ENCOUNTER → 2024-08-13 | Outpatient (CLI) | payer BC, SELFPAY ==
--- NOTE | 2024-08-13 13:31 | US_ITS ---
PROCEDURE: OB LIMITED WITH BIOMETRICS 08/13/2024 REASON FOR EXAM: GROWTH TECHNIQUE: High resolution obstetric ultrasound performed using a 2D transducer. Standard views obtained, including biometry, anatomy survey, and Doppler studies. FINDINGS Transabdominal imaging Single live intrauterine cardiac activity 143 beats per minute. Presentation is cephalic. Cervix not visualized. FLORIN 5.25 cm, maximum vertical pocket 2.4 cm DIMENSIONS: Biparietal Diameter: 8.9 cm/36 weeks 1 day, 58% Head Circumference: 32.5 cm/36 weeks 5 days, 31% Abdominal Circumference: 33.3 cm/37 weeks 1 day, 84% Femur Length: 6.8 cm/35 weeks 0 days, 16% FL/AC 20%, FL/BPD 76 %, FL/HC 21%, CI 78%, HC/AC 0.97 Estimated age by current ultrasound 36 weeks 6 days, VALERY 09/04/2024 age by LMP 36 weeks 2 days, VALERY 09/08/2024 US/OB Limited With Biometrics IMPRESSION: Single live intrauterine with biometry as above. FLORIN 5.25 cm, maximum vertical pocket 2.4 cm chief nuclear medicine technologist reports talked with Jami AMAYA and patient went for NST Reading Location: [id number]
== END | disposition home or self-care (01) ==
LOC: US 13:28
PROVIDERS: Referring Provider Obstetrics & Gynecology; Visit Provider Obstetrics & Gynecology
DX: Z87.59 Personal history of other complications of pregnancy, childbirth and the puerperium (principal)
CPT/HCPCS: 76816

== ENCOUNTER → 2024-08-14 | Outpatient (CLI) | payer BC, SELFPAY ==
--- NOTE | 2024-08-14 14:04 | US_ITS ---
PROCEDURE: OB LIMITED (NO BIOMETRICS), 08/14/2024 REASON FOR EXAM: BORDERLINE LOW FLORIN NEEDS REPEAT 08/14 TECHNIQUE: Grayscale and color doppler transabdominal pelvic ultrasound was performed with attention to the uterus and associated gestation. COMPARISON: 08/13/2024 ; note that images only are available for review, the report is not available at the time of the dictation. FINDINGS: A single intrauterine gestational is identified. Cardiac activity: Present, 135-143 bpm. position: Cephalic. Amniotic Fluid Index: 8.9 (normal 5-25), deepest vertical pocket 4.2 (normal 2-8). Placenta: Fundal, without visualized or definite previa. Calcifications noted. Cervix: Nonvisualized probably due to the gravid uterus. Right ovary: Not visualized likely due to the gravid uterus. Left ovary: Not visualized likely due to the gravid uterus. Other: No significant visualized pelvic free fluid. US/OB Limited (No Biometrics) IMPRESSION: 1. Single living intrauterine . 2. Low normal amniotic fluid index and normal deepest vertical pocket as above. . Reading Location: [id number]
== END | disposition home or self-care (01) ==
LOC: OPUS 14:03
PROVIDERS: Referring Provider Obstetrics & Gynecology; Visit Provider Obstetrics & Gynecology
DX: O41.92X0 Disorder of amniotic fluid and membranes, unspecified, second trimester, not applicable or unspecified (principal); Z3A.00 Weeks of gestation of pregnancy not specified
CPT/HCPCS: 76815

== ENCOUNTER → 2024-08-15 | Outpatient (CLI) | payer BC, SELFPAY | END | disposition home or self-care (01) | LOC: LABSPEC 11:33 | PROVIDERS: Referring Provider Obstetrics & Gynecology; Visit Provider Obstetrics & Gynecology | DX: O09.90 Supervision of high risk pregnancy, unspecified, unspecified trimester (principal); Z3A.00 Weeks of gestation of pregnancy not specified | CPT/HCPCS: 87081 ==

== ENCOUNTER → 2024-08-20 | Outpatient (CLI) | payer BC, SELFPAY ==
--- NOTE | 2024-08-20 15:48 | US_ITS ---
PROCEDURE: OB LIMITED (NO BIOMETRICS) 08/20/2024 REASON FOR EXAM: FLORIN TECHNIQUE: High resolution obstetric ultrasound performed using a 2D transducer. Transabdominal imaging FINDINGS Transabdominal imaging Single live intrauterine . Presentation is cephalic. cardiac activity 143-155 beats per minute. Fundal grade 2 placenta appears within limits. Not low-lying. Right and left adnexa appear unremarkable. FLORIN 10.2 cm, maximum vertical pocket 5 cm. Cervix not visualized. age by LMP 37 weeks 2 days, VALERY 09/08/2024 US/OB Limited (No Biometrics) IMPRESSION: Single live intrauterine . FLORIN 10.2 cm, maximum vertical pocket 5 cm. Reading Location: [id number]
== END | disposition home or self-care (01) ==
LOC: US 15:46
PROVIDERS: Referring Provider Obstetrics & Gynecology; Visit Provider Obstetrics & Gynecology
DX: O28.8 Other abnormal findings on antenatal screening of mother (principal); Z3A.00 Weeks of gestation of pregnancy not specified
CPT/HCPCS: 76815

== ENCOUNTER 2024-08-26 16:25 | Outpatient (CLI) | payer BC, SELFPAY ==
[2024-08-26 16:47] VITALS: PULSE 78; RESP 14; TEMP 36.4; O2SAT 98
[2024-08-26 16:48] VITALS: BP 113/78; PULSE 85
[2024-08-26 17:07] VITALS: BMI 25.4
--- NOTE | 2024-08-27 07:37 | OB.TRI.PN ---
Progress Notes Date of Service: 08/26/24 Progress Note: Patient presents for triage evaluation secondary to contractions FHT: 140 Moderate variability reactive no decelerations category I tracing [place]: isolated Contractions Assessment and plan: 38 weeks false labor Reactive NST, reassuring maternal and status patient discharged to home to follow-up as scheduled. See problem list details for additional plan information. Charges/Coding Procedures Urinary/Genital 52xxx-59xxx: 41629-38 non-stress test Interp
== END 2024-08-26 17:10 | disposition home or self-care (01) ==
LOC: WPOUT 16:33 → WP 16:34
PROVIDERS: Referring Provider Obstetrics & Gynecology; Visit Provider Obstetrics & Gynecology
DX: O47.1 False labor at or after 37 completed weeks of gestation (principal); Z3A.38 38 weeks gestation of pregnancy
CPT/HCPCS: 59025; 59050; 99221; G0378

== ENCOUNTER 2024-09-07 10:10 | Inpatient (IN) | payer BC, SELFPAY ==
[2024-09-07] VITALS (34 sets, daily range): BP systolic 99–128; BP diastolic 60–86; PULSE 75–99; RESP 16–17; TEMP 35.9–36.7; O2SAT 98–99; BMI 25.3
[2024-09-07 12:54] LABS: Absolute Lymphocyte Count 1.58 X10^3/uL (0.83-4.51); Absolute Neutrophil Count 6.5 X10^3/uL (2.0-7.7); Basophil# 0.03 X10^3/uL; Basophil% 0.3 % (0-1); Eosinophil# 0.04 X10^3/uL; Eosinophils% 0.5 % (0-5); Hematocrit 34.6 % (37-47); Hemoglobin 12.1 g/dL (12.0-15.0); Lymphocyte # 1.58 X10^3/ul (0.83-4.51); Lymphocyte % 18.1 % (19-41); Mean Corpuscular Hgb 32.2 pg (27.0-32.0); Mean Platelet Vol. 11.4 fl (6.2-12.0); Monocyte# 0.56 X10^3/uL; Monocyte% 6.4 % (0-10); NRBC Flagged by Analyzer 0 % (0-5); Neutrophil # 6.47 X10^3/uL (2.7-7.7); Neutrophil % 74.1 % (47-70); Platelet Count 220 K/mm3 (150-450); RBC Distribution Width SD 43.2 fl (35.1-43.9); Red Blood Count 3.76 M/mm3 (4.2-5.4); White Blood Count 8.7 K/mm3 (4.4-11.0)
[2024-09-07 13:04] LABS: Syphilis Antibodies Nonreactive (Nonreactive)
[2024-09-07] MEDS: 0.9% Normal Saline Single 100 ML IV.SOLN. INTRA-UTER (13:31)
[2024-09-07] MEDS: Lactated Ringers 1,000 ML 50 ML IV (13:31)
[2024-09-07] MEDS: Oxytocin 15 Units/NS 250ml 15 UNITS/250 ML IV.SOLN 2 UNITS IV (13:31)
[2024-09-07] MEDS: Lactated Ringers 1,000 ML 999 ML IV (17:15)
[2024-09-07] MEDS: fentaNYL-bupivacaine (epidural) 100 ML BAG EPIDURAL (18:22)
--- NOTE | 2024-09-07 21:34 | HP.PCM.OB_ITS ---
HPI - General General Date of Admission: 09/07/24 HPI Narrative TAM DE LA O, is a 34 F who presents IOL oligo doni 5 cm in office today. Maternal Data Information VALERY Calculator Estimated Delivery Date Method Current WG Current Estimate 09/08/24 LMP (Certain) 39w 6d Other Estimates 09/09/24 Ultrasound #1 39w 5d PFSH PFSH Medical History Missed Genetic testing of female Leg cramps Hx of abnormal cervical Pap smear Chemical Wears contact lenses Wears glasses Low iron Migraine headache Blackout Non-smoker Anxiety Acute pyelonephritis Home Medications ?Medication ?Instructions ?Recorded ?Last Taken ?Type doxylamine succinate 25 mg tablet 25 mg PO QHS PRN sle ep 07/15/23 Unknown History (Unisom (doxylamine)) multivitamin no.47-iron fum 27 1 cap PO DAILY 07/15/23 Unknown History mg-folate no.1 1 mg-dha 300 mg capsule (PNV-DHA) cholecalciferol (vitamin D3) 50 50 mcg PO QDAY 4 Unknown History mcg (2,000 unit) capsule famotidine 20 mg tablet (Pepcid) 20 mg PO BID #60 tabs 06/22/24 Unknown Rx Allergy/AdvReac Type Severity Reaction Status Date / Time tramadol Allergy Hives Verified 09/07/24 09:31 Family History Mother Thyroid disorder Fibromyalgia Sister Chronic ITP (idiopathic thrombocytopenic purpura) Neutropenia Father Cancer Skin cancer Surgical History H/O perineoplasty H/O dilation and curettage History of nasal septoplasty History of hand surgery History of tonsillectomy and adenoidectomy Social History adopted: No household members: spouse and children number of children: 1 current occupational status: employed current occupation: [employer] current occupational exposures/hazards: No pets and animals: Yes pets and animals: dog(s) history of recent travel: Yes (November) out of state: Yes out of country: No sexually active: Yes Smoking Status: Never smoker alcohol intake: current alcohol intake frequency: holidays/special occasions only details: not while substance use type: does not use well-balanced diet: daily or most days caffeine: No eating out: 1-3 times/week during the past year weight has: remained stable what type of physical activity do you participate in: walking frequency: daily duration: 45-60 minutes/day in/denominational: None seatbelt use: always do you feel safe at home: Yes additional social history: Jay- Lawyer [place] History 3 Elective abortions Hx Para 1 Spontaneous abortions 1 Hx # Term Pregnancies Ectopic pregnancies Hx # Pregnancies Multiple births # of living children 1 Past Pregnancies Del. Date Name GA/Weeks Outcome Route Bth Weight Infant Gen Labor Lgth Anesthesia Del Locatn Provider FOB 11/20/21 Bowen 40 live - full term 9#2oz Male 16hr epidur al [facility] Dominique Thompson 04/26/23 chemical 08/16/23 miscarriage 12 Delivery Date: 11/20/21 Last Updated by: Petrona Mcdowell IOL, post date Delivery Date: 08/16/23 Last Updated by: Akanksha Castellano Suction dilation and curettage, measuring 8 wks 6 days on 08/15/23 Visit Details Expected Delivery Route/Plan Labor Preferences- CB/BF classes: [] labor support person: [] labor intervention preferences: [] pain management options preferred: [] cut cord/dad catch: [] : [] PP control planned: [] discussed possible routes of delivery and associated risks: [] special requests: [] Plans Covid status: [] Flu vaccine: [] Tdap vaccine: given Rhogam:na LARC form signed:declined movement and labor precautions reviewed. Problem list reviewed and updated with the most current plan of care details and appropriate orders placed. Relevant counseling for the gestational age provided. Continue routine care and follow up unless otherwise noted in visit notes/problem list details OB Flowsheet Initial Weight: 117 lb Date -?-?-?-?-?-?-?-?-?-?-?-?- EGA Weight BP Urine Prot -?-?-?-?-?-?-?-?-?-?-?-?- Glucose FHR FuHt Pres Dilation -?-?-?-?-?-?-?-?-?-?-?-?- Effaced St Visit Note 01/30/24 -?-?-?-?-?-?-?-?-?-?-?-?- 8w 2d 117 lb 4 oz (+4 oz) 103/75 -?-?-?-?-?-?-?-?-?-?-?-?- 180 -?-?-?-?-?-?-?-?-?-?-?-?- KW- CRL cons wit h dates. Accepts NIPT. Will schedule appt in 2 weeks for FHT and labs due to hx. 02/14/24 -?-?-?-?-?-?-?-?-?-?-?-?- 10w 3d 119 lb (+2 lb) 105/72 Negative -?-?-?-?-?-?-?-?-?-?-?-?- Negative 174 -?-?-?-?-?-?-?-?-?-?-?-?- JV- CRL still co nsistent with lmp date. labs today. no complaints other than some morning sickness. 02/28/24 -?-?-?-?-?-?-?-?--?-?-?-?- 12w 3d 118 lb (+16 oz) 101/68 Negative -?-?-?-?-?-?-?-?-?-?-?-?- Negative 168 -?-?-?-?-?-?-?-?-?-?-?-?- JV- no lof, vagi nal bleeding, or cramping. having a girl! to get CF testing today. requesting doc only for delivery but more than happy to see the midwives and REEL REPAIRER for office visits. 03/29/24 -?-?-?-?-?-?-?-?-?-?-?-?- 16w 5d 123 lb (+6 lb) 101/67 Negative -?-?-?-?-?-?-?-?-?-?-?-?- Negative 160 -?--?-?-?-?-?-?-?-?-?-?-?- KW- +flutters. U S on 04/16. no vb/cramping. movement and FHT on handheld US today 04/25/24 -?-?-?-?-?-?-?-?-?-?-?-?- 20w 4d 130 lb 2 oz (+13 lb 2 oz) 99/65 Negative -?-?-?-?-?-?-?-?-?-?-?-?- Negative 160 -?-?-?-?-?-?-?-?-?-?-?-?- JV- still having a little morning sickness. normal anatomy scan. 05/24/24 -?-?-?-?-?-?-?-?-?-?-?-?- 24w 5d 134 lb 2 oz (+17 lb 2 oz) 98/64 Negative -?-?-?-?-?-?-?-?-?-?-?-?- Negative 140 -?-?-?-?-?-?-?-?-?-?-?-?- JV- no complaint s today. glucola ordered for next visit. 06/22/24 -?-?-?-?-?-?-?-?-?-?-?-?- 28w 6d 136 lb 2 oz (+19 lb 2 oz) 123/85 -?-?-?-?-?-?-?-?-?-?-?-?- 145 28 -?-?-?-?-?-?-?-?-?-?-?-?- SM- no vb lof go od fm no regular ctx pepcid ordered 07/02/24 -?-?-?-?-?-?-?-?-?-?-?-?- 30w 2d 140 lb 4 oz (+23 lb 4 oz) 94/62 Negative -?-?-?-?-?-?-?-?-?-?-?-?- Negative 140 30 -?-?-?-?-?-?-?-?-?-?-?-?- JV- JV- reflux improved. no lof, vaginal bleeding, or dec fm. normal glucola and cbc. signed LARC today. tdap done last visit. 07/16/24 -?-?-?-?-?-?-?-?-?-?-?-?- 32w 2d 139 lb 6 oz (+22 lb 6 oz) 97/61 Negative -?-?-?-?-?-?-?-?-?-?-?-?- Negative 142 32 -?-?-?-?-?-?-?-?-?-?-?-?- JV- no lof, vagi nal bleeding, or dec fm. still has nausea from indigestion. spreading out pepcid to three times a day now. 07/30/24 -?-?-?-?-?-?-?-?-?-?-?-?- 34w 2d 140 lb 2 oz (+23 lb 2 oz) 101/69 Trace -?-?-?-?-?-?-?-?-?-?-?-?- Negative 145 34 -?-?-?-?-?-?-?-?-?-?--?-?- SM- no vb lof go od fm no reuglar ctx, discussed delivery expectations, had significant tear with dificult healing last time but still wants vaginal , plan growth US at 36-37 08/15/24 -?-?-?-?-?-?-?-?-?-?-?-?- 36w 4d 141 lb 6 oz (+24 lb 6 oz) 96/69 Negative -?-?-?-?-?-?-?-?-?-?-?-?- Negative 150 34 -?-?-?-?-?-?-?-?-?-?-?-?- SM- no vb lof go od fm no reuglar ctx discussed fluid levels repeating again today just to confirm stability due to variation. repeat weekkly until delivery. SM- no vb lof good fm no reu glar ctx discussed fluid levels repeating again today just to confirm stability due to variation. repeat weekkly until delivery. repeat doni 11 cm 08/23/24 -?-?-?-?-?-?-?-?-?-?-?-?- 37w 5d 143 lb 6 oz (+26 lb 6 oz) 111/74 Negative -?-?-?-?-?-?-?-?-?-?-?-?- Negative 150 38 Cephalic 0 .5 -?-?-?-?-?-?-?-?-?-?-?-?- SM- no vb lof go od fm nor egular ctx 08/30/24 -?-?-?-?-?-?-?-?-?-?-?-?- 38w 5d 145 lb 6 oz (+28 lb 6 oz) 110/63 Negative -?-?-?-?-?-?-?-?-?-?-?-?- Negative 140 39 Cephalic 1 -?-?-?-?-?-?-?-?-?-?-?-?- SM- no vb lof go od fm nro egular ctx had ingrown toenail removed 09/07/24 -?-?-?-?-?-?-?-?-?-?-?-?- 39w 6d 148 lb (+31 lb) 113/79 Negative -?-?-?-?-?-?-?-?-?-?-?-?- Negative 140 38 Cephalic 1 .5 -?-?-?-?-?-?-?-?-?-?-?-?- 20 Sm- no v b lof good fm no regular ctx Sm- no vb lof good fm no reg ular ctx doni 5.15 cm NST FHR Rate Baby A Baseline: 130 Variability:: Moderate Accelerations:: 15 x 15 Decelerations:: None NST Reactive:: Yes FHR Category:: Category I Uterine Activity:: irregular ROS Constitutional Constitutional: Reports systems reviewed and no addt'l complaints, except as documented Eyes Eyes: Denies change in vision ENT HEENT: Reports systems reviewed and no addt'l complaints, except as documented; Denies headache(s) Cardiovascular Cardiovascular: Reports systems reviewed and no addt'l complaints, except as documented; Denies chest pain or dyspnea Respiratory/Chest Respiratory/Chest: Reports systems reviewed and no addt'l complaints, except as documented Gastrointestinal Gastrointestinal: Reports systems reviewed and no addt'l complaints, except as documented; Denies abdominal pain Genitourinary Genitourinary: Reports systems reviewed and no addt'l complaints, except as documented, contractions Details: present (irregular) and movement Details: present; Denies dysuria or genital lesions Musculoskeletal Musculoskeletal: Reports systems reviewed and no addt'l complaints, except as documented Neurologic Neurologic: Reports systems reviewed and no addt'l complaints, except as documented Endocrine Endocrinology: Reports systems reviewed and no addt'l complaints, except as documented Vital Signs Vital Signs Vital Signs: 09/07/24 10:36 09/07/24 10:36 09/07/24 10:36 Temperature Temperature Source Tympanic Pulse Rate 77 Respiratory Rate Blood Pressure 114/74 BP Systolic 114 BP Diastolic 74 Pulse Ox 09/07/24 10:36 09/07/24 15:22 09/07/24 15:22 Temperature 97.5 F L Temperature Source Temporal Pulse Rate Respiratory Rate 16 Blood Pressure BP Systolic BP Diastolic Pulse Ox 09/07/24 15:22 09/07/24 15:23 09/07/24 15:23 Temperature 97.2 F L Temperature Source Pulse Rate 82 Respiratory Rate Blood Pressure 120/75 BP Systolic 120 BP Diastolic 75 Pulse Ox 09/07/24 17:39 09/07/24 17:39 09/07/24 17:41 Temperature Temperature Source Pulse Rate 83 Respiratory Rate Blood Pressure 119/86 H BP Systolic 119 BP Diastolic 86 Pulse Ox 99 09/07/24 17:41 09/07/24 17:44 09/07/24 17:44 Temperature Temperature Source Pulse Rate 90 82 Respiratory Rate Blood Pressure BP Systolic BP Diastolic Pulse Ox 98 09/07/24 17:48 09/07/24 17:48 09/07/24 17:48 Temperature Temperature Source Pulse Rate 78 Respiratory Rate 16 Blood Pressure 111/72 BP Systolic 111 BP Diastolic 72 Pulse Ox 09/07/24 17:50 09/07/24 17:52 09/07/24 17:52 Temperature Temperature Source Pulse Rate 88 Respiratory Rate 16 Blood Pressure 124/62 H BP Systolic 124 BP Diastolic 62 Pulse Ox 09/07/24 17:54 09/07/24 17:57 09/07/24 17:57 Temperature Temperature Source Pulse Rate 75 Respiratory Rate 16 Blood Pressure 113/60 BP Systolic 113 BP Diastolic 60 Pulse Ox 09/07/24 17:59 09/07/24 18:02 09/07/24 18:02 Temperature Temperature Source Pulse Rate 86 Respiratory Rate 16 Blood Pressure 116/69 BP Systolic 116 BP Diastolic 69 Pulse Ox 09/07/24 18:04 09/07/24 18:09 09/07/24 18:09 Temperature Temperature Source Pulse Rate 83 Respiratory Rate 16 Blood Pressure 118/71 BP Systolic 118 BP Diastolic 71 Pulse Ox 09/07/24 18:12 09/07/24 18:12 09/07/24 19:26 Temperature Temperature Source Pulse Rate 83 Respiratory Rate Blood Pressure 120/67 114/74 BP Systolic 120 114 BP Diastolic 67 74 Pulse Ox 09/07/24 19:26 09/07/24 19:26 09/07/24 19:26 Temperature Temperature Source Temporal Pulse Rate 75 Respiratory Rate 16 Blood Pressure BP Systolic BP Diastolic Pulse Ox 09/07/24 19:26 09/07/24 19:27 09/07/24 19:27 Temperature 96.7 F L Temperature Source Pulse Rate 92 Respiratory Rate Blood Pressure BP Systolic BP Diastolic Pulse Ox 99 09/07/24 20:49 09/07/24 20:49 09/07/24 20:50 Temperature Temperature Source Temporal Pulse Rate 88 Respiratory Rate Blood Pressure 128/76 H BP Systolic 128 BP Diastolic 76 Pulse Ox 09/07/24 20:50 Temperature 97.6 F L Temperature Source Pulse Rate Respiratory Rate Blood Pressure BP Systolic BP Diastolic Pulse Ox Weight Weight: 147 lb 9.6 oz Body Mass Index (BMI) 25.3 Physical Exam Const alert, oriented x3, no apparent distress and healthy appearing HEENT normocephalic and moist oral mucous membranes Head and Scalp: atraumatic Neck full ROM, no lymphadenopathy, supple and thyroid normal General: trachea midline Lymph Lymphatic: no lymphadenopathy noted Chest inspection of chest normal Resp normal respiratory effort Cardio regular rate GI soft to palpation and non-tender GI Narrative: gravid Inspection: gravid external exam normal Manual OB Exam: estimated gestational size appropriate, presentation cephalic, dilated, effaced and station Extremity normal to inspection General Extremity: Negative for edema Skin no rashes or lesions noted Neuro no focal motor deficits and deep tendon reflexes 2+ bilaterally Motor Exam: strength 5/5 throughout and clonus absent Psych mental status grossly normal Labs Labs Labs: Blood Type A POSITIVE Antibody Screen NEGATIVE Hct 34.6 % (37-47) L Hgb 12.1 g/dL (12.0-15.0) Obstetrics Ultrasound Syphilis Total Ab Nonreactive (Nonreactive) Rubella IgG Antibody Reactive (Nonreactive) Hep Bs Antigen Non-Reactive (Nonreactive) Hepatitis C Antibody Non-Reactive (Nonreactive) Chlamydia DNA (JEWEL) Negative (Negative) N.gonorrhoeae DNA (JEWEL) Negative (Negative) HIV 1&2 Antibody Nonreactive (Nonreactive) Glucose 1 Hr 50 gm 69 mg/dL (70-140) L Rhogam given: No Assessment & Plan (1) Encounter for induction of labor: (2) Oligohydramnios in third trimester: (3) Maternal history of obstetrical complications: COMMENT: discussed getting growth US at 36 weeks consider IOL at 40 weeks depending on size due to previous tear with larger head and baby (4) Supervision of high-risk : COMMENT: PRR, , VALERY 09/08/24, girl (name secret) EMILE Wiseman, Jay (5) : QUALIFIERS: Weeks of gestation: 40 weeks Qualified Code(s): Z3A.40 - 40 weeks gestation of COMMENT: DOC ONLY NEG GBS NIPT low risk, unremarkable anatomy, consistent dates. carrier reviewed. ntd screen declined. (6) Mild depression: COMMENT: post miscarriage (7) Anxiety: COMMENT: related to recent miscarriage (8) Cystic fibrosis carrier: COMMENT: negative PLAN: Plan Patient presents IAL, plan expectant management for , pitocin/AROM PRN if needed. Pain management: plans epidural. GBS neg. Management of any complications: oligo [facility] and made any clinically relevant updates.
--- NOTE | 2024-09-07 21:38 | OB.VAGDELI_ITS ---
Assessment & Plan (1) Encounter for induction of labor: (2) Oligohydramnios in third trimester: (3) Maternal history of obstetrical complications: COMMENT: discussed getting growth US at 36 weeks consider IOL at 40 weeks depending on size due to previous tear with larger head and baby (4) Supervision of high-risk : COMMENT: PRR, , VALERY 09/08/24, girl (name secret) EMILE Wiseman, Jay (5) : QUALIFIERS: Weeks of gestation: 40 weeks Qualified Code(s): Z3A.40 - 40 weeks gestation of COMMENT: DOC ONLY NEG GBS NIPT low risk, unremarkable anatomy, consistent dates. carrier reviewed. ntd screen declined. (6) Mild depression: COMMENT: post miscarriage (7) Anxiety: COMMENT: related to recent miscarriage (8) Cystic fibrosis carrier: COMMENT: negative Maternal Data Information VALERY Calculator Estimated Delivery Date Method Current WG Current Estimate 09/08/24 LMP (Certain) 39w 6d Other Estimates 09/09/24 Ultrasound #1 39w 5d Vaginal Delivery Maternal Presentation Maternal Presentation: see assessment and plan Vaginal Delivery Information Procedure Performed: Spontaneous Vaginal Delivery Surgeon/Practitioner: Cara Mcmanus Pre-Procedure Diagnosis: see assessment and plan Post-Procedure Diagnosis: same Type of anesthesia: Epidural Estimated Blood Loss: 200 Findings Description of procedure: Patient began pushing and delivered the head in the NEMO presentation. The head was delivered atraumatically and a tight nuchal cord, infant delivered through. The anterior and posterior shoulders delivered without complication followed by the rest of the infant, the cord was tangled around the body and around both ankles, and after untangling the was placed on the maternal abdomen. Delayed cord clamping was employed for approximately 60 seconds. Cord was clamped and cut and gentle traction was applied to the cord and the placenta delivered spontaneously immediately following it was noted to be intact with three-vessel cord. The perineum and vagina were inspected and was noted to have a second -degree laceration that was repaired in the usual fashion with 3-0 vicryl rapide. EBL was 200. Patient and tolerated delivery well. Presentation: Vertex Placental Delivery Description: Spontaneous Specimen collected: Yes Description of specimen(s) removed: placenta Police Crime Scene Technician hand clerical verifier: No Post Vaginal Deli Medications given after delivery: Other (pitocin) Complication Complications: No Multi Select Codes Urinary/Genital Urinary/Genital CPT Codes: 07233 [facility]
--- NOTE | 2024-09-07 21:41 | DCINST_ITS ---
Discharge Instructions Diet Discharge Diet: No restrictions DC O2, CPAP, BIPAP needs Home O2 Discharge instructions: No Dressing / Incision Discharge Activity: Return to Normal Activity, May Not Drive (while taking narcotic pain medications.) and May Shower May resume sexual activity in: 4-6 weeks Dressing / Incision Call your doctor if your incision/area has: Continuous Slow Oozing, Sudden Increased Bleeding, Increased Pain/ Swelling, Increased Redness and Foul Smelling Discharge Follow Up Care Please Follow Up With: Cara Mmcanus MD When: Call [phone] to make an appointment with your doctor in 6 weeks. If you had elevated blood pressure or 4th degree laceration, you will need to be seen in 2 weeks. Test Results: Test results from this visit will be discussed in further detail at your follow- up appointment, if applicable. Discharge Plan Admission Admit Date/Time: 09/07/24 10:10 Attending Provider: Cara Mcmanus Primary Care Provider: Care Physician,No Primary Discharge Orders/Prescriptions Prescriptions: No Action PNV-DHA 27 mg iron-1 mg -300 mg capsule 1 cap PO DAILY Unisom (doxylamine) 25 mg tablet 25 mg PO QHS PRN (Reason: sleep) cholecalciferol (vitamin D3) 50 mcg (2,000 unit) capsule 50 mcg PO QDAY famotidine [Pepcid] 20 mg tablet 20 mg PO BID Qty: 60 6RF Referrals / Follow Up: Care Physician,No Primary [Primary Care Provider] -
[2024-09-07] MEDS: Oxytocin 15 Units/NS 250ml 15 UNITS/250 ML IV.SOLN 83 UNITS IV (21:45)
[2024-09-08] VITALS (8 sets, daily range): BP systolic 103–111; BP diastolic 60–69; PULSE 76–97; RESP 16; TEMP 36.1–36.9; O2SAT 97–98
[2024-09-08] MEDS: Naproxen 500 MG Tablet PO ×3 (03:38→21:35)
--- NOTE | 2024-09-08 10:50 | CASEMGMT ---
Social Work Assessment Labor and Delivery Unit [facility] [place] [address] Phone number: [phone] Date of Referral: 09/08/24 Time of Referral: 08:38 Referred By: Cara Mcmanus Date of Intervention: 09/08/2024 Time of Intervention: 10:50 Reason for Referral: Mental Health History obtained from: Medical records, mother of baby (MOB) and father of baby (FOB).? Household composition: MOB, FOB (Jay), their 2-year-old son, Bowen and daughter, Tara, born on 09/07/24. Patient's parent/guardian status: MOB and FOB have been together for 13 years and for 8 years. ??MOB described a positive relationship with the FOB and denied any previous or current issues of domestic violence. Medical History: : 4, Para, now 2. MOB had a chemical on 04/26/23 and a SAB on 08/16/23. MOB received care through [facility] beginning at 8 weeks and 2 days.? Visits were observed to be routine. Apgars: 9 and 9. Weight: 7lbs, 13oz. Manager Engagement: Dr. Murrell. MOB is currently and described it as going very well. Educational Status: MOB and FOB denied any issues with reading, writing or learning comprehension. MOB earned a Bachelor?s degree and the FOB earned his Law degree. Financial Status: MOB and FOB reported that their income is sufficient to meet the needs of their family at this time. KELLEY is currently employed full-time at [employer] and gets 12-14 weeks of maternity leave to use now and an additional 6 weeks that can be used anytime during the first year of current delivery as well. KELLEY also reported she has a lot of her vacation time saved up that she plans on using. Infant Supplies: MOB and FOB reported they have the supplies they need for baby at this time including but not limited to: Car seat, mini crib, diapers, bottles, breast pump and clothing. Childcare/Caregiver(s): MOB and FOB will both provide childcare to during the times they are not working. After the MOB returns to work, will attend the daycare that is provided at her work place where ?s sibling also attends. Transportation: Both MOB and FOB are licensed drivers and have reliable vehicles to get baby to and from all medical appointments. MOB and FOB denied any issues/barriers to transportation at this time. Programs/Agencies Involved: No previous or current agency involvement. Children Services/Legal Issues: Denied. Behavioral Health Issues:? Mental Health History: MOB has a history of anxiety and PPD. MOB denied any current depression and reported her anxiety is being successfully managed at this time. MOB reported she was anxious as a first-time mom with her son and also experienced some depression after having had a difficult time breast feeding with him however described her current experience as ?much better?. MOB reported she is aware of her triggers, has developed some strong coping mechanisms and is good at reaching out for help when needed. FOB denied any history of mental health. ?Substance Use History:?? MOB and FOB ?denied any previous or current drug or alcohol abuse. Family History: Denied. ??Drug Screens: Not obtained for MOB or baby during this admission. Family/Social Stressors:?? Denied. Support Systems: MOB identified her biggest support as the FOB, ?s maternal grandmother (MGM), paternal grandmother (PGM) and maternal aunt. Depression/Shaken Baby/Safe Sleeping: janitorial maintenance worker provided verbal and written education on PPD, risk factors for PPD, Safe Sleeping and Shaken Baby.? MOB verbalized an understanding (FOB had already stepped out of the room at this point).??? ASSESSMENT: MOB and FOB provided consent to social work visit. Upon arrival, the MOB and FOB were sitting beside one another on the couch watching their parenting videos and was in the crib, sleeping. At one point, the FOB got up and changed ?s diaper. MOB were both very cooperative and verbally engaged. Infrastructure Software Engineer observed positive interaction between the MOB and FOB. Infrastructure Software Engineer did have a chance to talk with the MOB alone after the FOB stepped out of the room, and the MOB denied any previous or current domestic violence, unmanaged mental health issues or drug or alcohol abuse issues with her or the FOB. No concerns reported or identified. Safe Plan of Care for infant related to substance use: N/A PLAN: For MOB and baby to be discharged when medically ready. No other services requested or indicated.? Gia Spencer [employer]
--- NOTE | 2024-09-08 11:48 | PCM.PN.OB ---
Subjective Subjective Patient doing well without complaints. Tolerating PO. Ambulating and voiding without difficulty. feeding well. Denies chest pain, shortness of breath, calf pain/swelling, fevers, chills, lightheadedness. Objective Data Objective Data Vital Signs: Vital Signs Temp Pulse Resp BP Pulse Ox O2 Del Method 98.4 F 79 16 104/67 97 Room Air 09/08/24 08:10 09/08/24 08:10 09/08/24 08:10 09/08/24 08:10 09/08/24 08:10 09/08/24 08:10 Oxygen Delivery Method Room Air Weight: 147 lb 9.6 oz Body Mass Index (BMI) 25.3 Intake & Output: Intake and Output for Last 24 Hours 09/06/24 09/07/24 09/08/24 23:59 23:59 23:59 Intake Total 1900.03 / 1900.03 250 / 250 Output Total 600 / 600 800 / 800 Balance 1300.03 / 1300.03 -550 / -550 Lab / Micro Data 09/07/24 11:45 Labs: Laboratory Results - last 24 hr 09/07/24 11:45: WBC 8.7, RBC 3.76 L, Hgb 12.1, Hct 34.6 L, MCV 92.0, MCH 32.2 H, MCHC 35.0, RDW Std Deviation 43.2, RDW Coeff of Home 13.0, Plt Count 220, MPV 11.4, Immature Gran % (Auto) 0.600, Neut % (Auto) 74.1 H, Lymph % (Auto) 18.1 L, [place] % (Auto) 6.4, Eos % (Auto) 0.5, Baso % (Auto) 0.3, Absolute Neuts (auto) 6.5, Absolute Lymphs (auto) 1.58, Nucleated RBC % 0, Syphilis Total Ab Nonreactive, Blood Type A POSITIVE, Antibody Screen NEGATIVE ROS Constitutional Constitutional: Reports systems reviewed and no addt'l complaints, except as documented Cardiovascular Cardiovascular: Reports systems reviewed and no addt'l complaints, except as documented Respiratory/Chest Respiratory/Chest: Reports systems reviewed and no addt'l complaints, except as documented Gastrointestinal Gastrointestinal: Reports systems reviewed and no addt'l complaints, except as documented Physical Exam Const alert, oriented x3 and no apparent distress HEENT Head and Scalp: atraumatic Resp normal respiratory effort GI soft to palpation and non-tender Bimanual Exam - Vag & Uterus: uterus non-tender Uterus Palpation: uterus fundus firm (below Umbilicus) Assessment & Plan (1) Vaginal delivery: COMMENT: SM IOL oligo girl Tara 40 PLAN: Plan s/p PPD # 1 1. routine post delivery care 2. breast feeding- support given 3. rh positive 4. rubella immune
[2024-09-09 02:47] VITALS: BP 96/60; PULSE 74; PULSE 75; RESP 16; TEMP 36.4; O2SAT 97
--- NOTE | 2024-09-09 07:23 | PCM.PN.OB ---
Subjective Subjective Patient doing well without complaints. Tolerating PO. Ambulating and voiding without difficulty. feeding well. Denies chest pain, shortness of breath, calf pain/swelling, fevers, chills, lightheadedness. Objective Data Objective Data Vital Signs: Vital Signs Temp Pulse Resp BP Pulse Ox O2 Del Method 97.6 F L 75 16 96/60 97 Room Air 09/09/24 02:47 09/09/24 02:47 09/09/24 02:47 09/09/24 02:47 09/09/24 02:47 09/09/24 02:47 Oxygen Delivery Method Room Air Weight: 147 lb 9.6 oz Body Mass Index (BMI) 25.3 Intake & Output: Intake and Output for Last 24 Hours 09/07/24 09/08/24 09/09/24 23:59 23:59 23:59 Intake Total 1900.03 / 1900.03 250 / 250 Output Total 600 / 600 800 / 800 Balance 1300.03 / 1300.03 -550 / -550 Lab / Micro Data 09/07/24 11:45 Labs: Laboratory Results - last 24 hr 09/07/24 11:45: WBC 8.7, RBC 3.76 L, Hgb 12.1, Hct 34.6 L, MCV 92.0, MCH 32.2 H, MCHC 35.0, RDW Std Deviation 43.2, RDW Coeff of Home 13.0, Plt Count 220, MPV 11.4, Immature Gran % (Auto) 0.600, Neut % (Auto) 74.1 H, Lymph % (Auto) 18.1 L, [place] % (Auto) 6.4, Eos % (Auto) 0.5, Baso % (Auto) 0.3, Absolute Neuts (auto) 6.5, Absolute Lymphs (auto) 1.58, Nucleated RBC % 0, Syphilis Total Ab Nonreactive, Blood Type A POSITIVE, Antibody Screen NEGATIVE ROS Constitutional Constitutional: Reports systems reviewed and no addt'l complaints, except as documented Cardiovascular Cardiovascular: Reports systems reviewed and no addt'l complaints, except as documented Respiratory/Chest Respiratory/Chest: Reports systems reviewed and no addt'l complaints, except as documented Gastrointestinal Gastrointestinal: Reports systems reviewed and no addt'l complaints, except as documented Physical Exam Const alert, oriented x3 and no apparent distress HEENT Head and Scalp: atraumatic Resp normal respiratory effort GI soft to palpation and non-tender Bimanual Exam - Vag & Uterus: uterus non-tender Uterus Palpation: uterus fundus firm (below Umbilicus) Assessment & Plan (1) Vaginal delivery: COMMENT: SM IOL oligo girl Tara 40 PLAN: Plan s/p PPD # 2 1. routine post delivery care 2. breast feeding- support given 3. rh positive 4. rubella immune
[2024-09-09 07:42] VITALS: BP 107/69; PULSE 75; RESP 16; TEMP 36.8; O2SAT 97
[2024-09-09 07:43] VITALS: BP 107/69; PULSE 78
[2024-09-09] MEDS: Naproxen 500 MG Tablet PO (07:51)
[2024-09-09 14:56] VITALS: BP 125/72; PULSE 94
[2024-09-09 15:00] VITALS: BP 125/72; PULSE 92; RESP 16; TEMP 36.3; O2SAT 97
== END 2024-09-09 19:20 | disposition home or self-care (01) | DRG 807 ==
PROVIDERS: Admitting Provider Obstetrics & Gynecology; Referring Provider Obstetrics & Gynecology; Visit Provider Obstetrics & Gynecology
DX: O41.03X0 Oligohydramnios, third trimester, not applicable or unspecified (principal); Z37.0 Single live birth; O99.344 Other mental disorders complicating childbirth; F41.9 Anxiety disorder, unspecified; F53.0 Postpartum depression; Z3A.40 40 weeks gestation of pregnancy; Z14.1 Cystic fibrosis carrier; N96 Recurrent pregnancy loss; O70.1 Second degree perineal laceration during delivery; O69.1XX0 Labor and delivery complicated by cord around neck, with compression, not applicable or unspecified; O99.893 Other specified diseases and conditions complicating puerperium; Z87.59 Personal history of other complications of pregnancy, childbirth and the puerperium
CPT/HCPCS: 59025; 59050; 85025; 86780; 86850; 86900; 86901; 99221; G0378